=== PATIENT | male | born 1955 | race Caucasian/White ===

== ENCOUNTER → 2016-04-28 | Outpatient (REF) | payer OTHER ==
[~2016-04-28] MED LIST: ATOR1TAB19 PO; FISH100049 PO; PROTPAK PO
[2016-04-28 16:04] LABS: ALBUMIN 3.8 GM/DL (3.2-5.2); ALBUMIN/GLOBULIN RATIO 1.15 (1.00-1.93); ALKALINE PHOSPHATASE 69 U/L (45-117); ALT/SGPT 26 U/L (12-78); ANION GAP 9 MEQ/L (8-16); AST/SGOT 18 U/L (15-37); BILIRUBIN,TOTAL 0.4 MG/DL (0.2-1.0); BLOOD UREA NITROGEN 18 MG/DL (7-18); CALCIUM LEVEL 9.3 MG/DL (8.8-10.2); CARBON DIOXIDE LEVEL 27 MEQ/L (21-32); CHLORIDE LEVEL 104 MEQ/L (98-107); CHOLESTEROL LEVEL 191 MG/DL (<200); CREATININE FOR GFR 1.02 MG/DL (0.70-1.30); GLOMERULAR FILTRATION RATE > 60.0 (>49); GLUCOSE, FASTING 86 MG/DL (80-110); POTASSIUM SERUM 5.1 MEQ/L (3.5-5.1); SODIUM LEVEL 140 MEQ/L (136-145); TOTAL PROTEIN 7.1 GM/DL (6.4-8.2); TRIGLYCERIDES LEVEL 290 MG/DL (<150); URIC ACID 6.4 MG/DL (3.5-7.2)
[2016-04-28 16:06] LABS: MEAN CORPUSCULAR HEMOGLOBIN 32.8 pg (27.0-33.0); MEAN CORPUSCULAR HGB CONC 33.6 g/dl (32.0-36.5); MEAN CORPUSCULAR VOLUME 97.8 fl (80.0-96.0); RED CELL DISTRIBUTION WIDTH 12.3 % (11.5-14.5)
== END ==
LOC: M SFHCPLAZ 13:54
PROVIDERS: ATTEND Internal Medicine
DX: Z00.00 Encounter for general adult medical examination without abnormal findings (principal); I25.10 Atherosclerotic heart disease of native coronary artery without angina pectoris; M25.571 Pain in right ankle and joints of right foot; K21.9 Gastro-esophageal reflux disease without esophagitis; E78.5 Hyperlipidemia, unspecified

== ENCOUNTER → 2016-06-02 | Outpatient (REF) | payer OTHER ==
[2016-06-02 10:30] LABS: MEAN CORPUSCULAR HEMOGLOBIN 31.9 pg (27.0-33.0); MEAN CORPUSCULAR HGB CONC 33.9 g/dl (32.0-36.5); MEAN CORPUSCULAR VOLUME 94.1 fl (80.0-96.0); RED CELL DISTRIBUTION WIDTH 12.5 % (11.5-14.5)
[2016-06-02 10:46] LABS: ALBUMIN 3.8 GM/DL (3.2-5.2); ALBUMIN/GLOBULIN RATIO 1.12 (1.00-1.93); ALKALINE PHOSPHATASE 83 U/L (45-117); ALT/SGPT 29 U/L (12-78); ANION GAP 10 MEQ/L (8-16); AST/SGOT 22 U/L (15-37); BILIRUBIN,TOTAL 0.6 MG/DL (0.2-1.0); BLOOD UREA NITROGEN 15 MG/DL (7-18); CALCIUM LEVEL 9.2 MG/DL (8.8-10.2); CARBON DIOXIDE LEVEL 27 MEQ/L (21-32); CHLORIDE LEVEL 103 MEQ/L (98-107); CHOLESTEROL LEVEL 166 MG/DL (<200); CREATININE FOR GFR 0.97 MG/DL (0.70-1.30); GLOMERULAR FILTRATION RATE > 60.0 (>49); GLUCOSE, FASTING 104 MG/DL (80-110); POTASSIUM SERUM 4.6 MEQ/L (3.5-5.1); SODIUM LEVEL 140 MEQ/L (136-145); TOTAL PROTEIN 7.2 GM/DL (6.4-8.2); TRIGLYCERIDES LEVEL 388 MG/DL (<150)
== END ==
LOC: M LAB REF 10:14
PROVIDERS: ATTEND Internal Medicine Cardiovascular Disease
DX: I25.10 Atherosclerotic heart disease of native coronary artery without angina pectoris (principal)

== ENCOUNTER 2016-06-11 10:14 | Outpatient (RCR) | payer OTHER | END 2016-06-17 | LOC: M CR 10:14 | PROVIDERS: ATTEND Internal Medicine Cardiovascular Disease | DX: Z51.89 Encounter for other specified aftercare (principal); I25.10 Atherosclerotic heart disease of native coronary artery without angina pectoris; Z98.61 Coronary angioplasty status ==

== ENCOUNTER 2016-07-04 14:05 | Outpatient (RCR) | payer OTHER | END 2016-07-18 | LOC: M CR 14:05 | PROVIDERS: ATTEND Internal Medicine Cardiovascular Disease | DX: Z51.89 Encounter for other specified aftercare (principal); I25.10 Atherosclerotic heart disease of native coronary artery without angina pectoris; Z98.61 Coronary angioplasty status ==

== ENCOUNTER 2016-07-21 09:31 | Outpatient (RCR) | payer OTHER | END 2016-08-17 | LOC: M CR 09:31 | PROVIDERS: ATTEND Internal Medicine Cardiovascular Disease | DX: Z51.89 Encounter for other specified aftercare (principal); I25.10 Atherosclerotic heart disease of native coronary artery without angina pectoris; Z98.61 Coronary angioplasty status ==

== ENCOUNTER 2016-08-18 08:23 | Outpatient (RCR) | payer OTHER | END 2016-09-17 | LOC: M CR 08:23 | PROVIDERS: ATTEND Internal Medicine Cardiovascular Disease | DX: Z51.89 Encounter for other specified aftercare (principal); I25.10 Atherosclerotic heart disease of native coronary artery without angina pectoris; Z98.61 Coronary angioplasty status ==

== ENCOUNTER 2017-01-27 11:38 | Emergency (ER) | payer OTHER ==
[~2017-01-27] VITALS: Ht 172.7 cm; Wt 72.7 kg
[2017-01-27] MEDS ORDERED: ROSU5TAB (11:49)
[2017-01-27] MEDS ORDERED: LISI2.5T3 (11:49)
[2017-01-27] MEDS ORDERED: CARV6.25 (11:49)
[2017-01-27] MEDS ORDERED: COEN200C (11:49)
[2017-01-27] MEDS ORDERED: BRIL90TA (11:49)
[2017-01-27 12:42] LABS: BASO # 0.1 10^3/uL (0.0-0.2); BASO % 0.8 % (0.0-1.0); EOS # 0.2 10^3/uL (0.0-0.50); EOS % 2.8 % (0.0-3.0); IMMATURE GRANULOCYTE % 0.4 % (0-0); LYMPH # 1.6 10^3/uL (1.5-4.5); LYMPH % 20.6 % (24.0-44.0); MEAN CORPUSCULAR HEMOGLOBIN 32.9 pg (27.0-33.0); MEAN CORPUSCULAR HGB CONC 34.3 g/dl (32.0-36.5); MEAN CORPUSCULAR VOLUME 95.7 fl (80.0-96.0); MONO % 13.3 % (0.0-5.0); NEUTROPHILS # 4.7 10^3/uL (1.8-7.7); NEUTROPHILS % 62.1 % (36.0-66.0); PLATELET COUNT, AUTOMATED 246 10^3/uL (150-450); RED CELL DISTRIBUTION WIDTH 12.7 % (11.5-14.5); WHITE BLOOD COUNT 7.6 10^3/uL (4.0-10.0)
[2017-01-27] MEDS ORDERED: diphenhydrAMINE INJ 50MG/ML VIAL (J1200) IV ONE (12:45)
[2017-01-27] MEDS ORDERED: FAMOTIDINE INJ 20MG/2ML VIAL (S0028) IVP ONE (12:45)
[2017-01-27] MEDS ORDERED: methylPREDNISolone INJ 125 MG/2 ML VIAL (J2930) IV ONE (12:45)
[2017-01-27 12:49] LABS: ANION GAP 9 MEQ/L (8-16); BLOOD UREA NITROGEN 17 MG/DL (7-18); CALCIUM LEVEL 9.3 MG/DL (8.8-10.2); CARBON DIOXIDE LEVEL 24 MEQ/L (21-32); CHLORIDE LEVEL 101 MEQ/L (98-107); CREATININE FOR GFR 1.04 MG/DL (0.70-1.30); GLOMERULAR FILTRATION RATE > 60.0 (>49); GLUCOSE, FASTING 110 MG/DL (80-110); POTASSIUM SERUM 4.5 MEQ/L (3.5-5.1); SODIUM LEVEL 134 MEQ/L (136-145)
[2017-01-27 14:29] VITALS: BP 113/73
== END 2017-01-27 14:36 | disposition home or self-care (01) ==
LOC: M ED 11:38
DX: T78.3XXA Angioneurotic edema, initial encounter (principal); Z79.01 Long term (current) use of anticoagulants; I25.10 Atherosclerotic heart disease of native coronary artery without angina pectoris; I25.2 Old myocardial infarction; I10 Essential (primary) hypertension; E78.4 Other hyperlipidemia
CPT/HCPCS: 80048; 85025; 93041; 94760; 96374; 96375; 99285; J1200; J2930

== ENCOUNTER → 2017-04-07 | Outpatient (REF) | payer OTHER ==
[~2017-04-07] MED LIST changes: +BRIL90TA; +CARV6.25; +COEN200C; +LISI2.5T3; +ROSU5TAB
[2017-04-07 12:39] LABS: ALBUMIN/GLOBULIN RATIO 1.14 (1.00-1.93); ALKALINE PHOSPHATASE 68 U/L (45-117); ALT/SGPT 42 U/L (12-78); ANION GAP 10 MEQ/L (8-16); AST/SGOT 36 U/L (7-37); BILIRUBIN,TOTAL 0.8 MG/DL (0.2-1.0); BLOOD UREA NITROGEN 15 MG/DL (7-18); CALCIUM LEVEL 9.3 MG/DL (8.8-10.2); CARBON DIOXIDE LEVEL 28 MEQ/L (21-32); CHLORIDE LEVEL 102 MEQ/L (98-107); CHOLESTEROL LEVEL 206 MG/DL (<200); CREATININE FOR GFR 0.87 MG/DL (0.70-1.30); GLOMERULAR FILTRATION RATE > 60.0 (>49); GLUCOSE, FASTING 104 MG/DL (80-110); MAGNESIUM LEVEL 2.3 MG/DL (1.8-2.4); POTASSIUM SERUM 4.5 MEQ/L (3.5-5.1); SODIUM LEVEL 140 MEQ/L (136-145); TOTAL PROTEIN 7.5 GM/DL (6.4-8.2); TRIGLYCERIDES LEVEL 247 MG/DL (<150); URIC ACID 7.7 MG/DL (3.5-7.2)
== END ==
LOC: M SFHCPLAZ 11:10
PROVIDERS: ATTEND Internal Medicine
DX: E78.5 Hyperlipidemia, unspecified (principal); I25.10 Atherosclerotic heart disease of native coronary artery without angina pectoris; M25.571 Pain in right ankle and joints of right foot

== ENCOUNTER → 2017-09-24 | Outpatient (REF) | payer OTHER ==
[2017-09-24 12:35] LABS: HEMATOCRIT 40.4 % (42.0-52.0); HEMOGLOBIN 13.5 g/dl (13.5-17.5); MEAN CORPUSCULAR HEMOGLOBIN 33.3 pg (27.0-33.0); MEAN CORPUSCULAR HGB CONC 33.4 g/dl (32.0-36.5); MEAN CORPUSCULAR VOLUME 99.8 fl (80.0-96.0); PLATELET COUNT, AUTOMATED 200 10^3/uL (150-450); RED BLOOD COUNT 4.05 10^6/uL (4.30-6.10); RED CELL DISTRIBUTION WIDTH 12.7 % (11.5-14.5); WHITE BLOOD COUNT 5.1 10^3/uL (4.0-10.0)
[2017-09-24 13:11] LABS: ALBUMIN 3.7 GM/DL (3.2-5.2); ALBUMIN/GLOBULIN RATIO 1.12 (1.00-1.93); ALKALINE PHOSPHATASE 64 U/L (45-117); ALT/SGPT 51 U/L (12-78); ANION GAP 7 MEQ/L (8-16); AST/SGOT 35 U/L (7-37); BILIRUBIN,TOTAL 0.5 MG/DL (0.2-1.0); BLOOD UREA NITROGEN 13 MG/DL (7-18); CALCIUM LEVEL 9.1 MG/DL (8.8-10.2); CARBON DIOXIDE LEVEL 28 MEQ/L (21-32); CHLORIDE LEVEL 106 MEQ/L (98-107); CHOLESTEROL LEVEL 193 MG/DL (<200); CHOLESTEROL RISK RATIO 3.271 (<5); CREATININE FOR GFR 0.92 MG/DL (0.70-1.30); GLOMERULAR FILTRATION RATE > 60.0 (>49); GLUCOSE, FASTING 92 MG/DL (70-100); HDL CHOLESTEROL 59 MG/DL (>40); LDL CHOLESTEROL 87.4 MG/DL (<100); MAGNESIUM LEVEL 1.8 MG/DL (1.8-2.4); NON-HDL-C 134 MG/DL; SODIUM LEVEL 141 MEQ/L (136-145); TRIGLYCERIDES LEVEL 233 MG/DL (<150); URIC ACID 8.8 MG/DL (3.5-7.2)
== END ==
LOC: M SFHCPLAZ 08:05
DX: K21.9 Gastro-esophageal reflux disease without esophagitis (principal); E79.0 Hyperuricemia without signs of inflammatory arthritis and tophaceous disease; I25.10 Atherosclerotic heart disease of native coronary artery without angina pectoris; E78.5 Hyperlipidemia, unspecified; R00.2 Palpitations

== ENCOUNTER → 2018-02-23 | Outpatient (REF) | payer OTHER ==
[2018-02-23 14:27] LABS: NT-PRO BNP 1740 PG/ML (<125)
== END ==
LOC: M LABDRAWP 10:08
DX: I50.42 Chronic combined systolic (congestive) and diastolic (congestive) heart failure (principal)
CPT/HCPCS: 36415

== ENCOUNTER → 2018-03-26 | Outpatient (REF) | payer OTHER ==
[2018-03-26 12:13] LABS: ALKALINE PHOSPHATASE 68 U/L (45-117); ALT/SGPT 29 U/L (12-78); ANION GAP 7 MEQ/L (8-16); AST/SGOT 32 U/L (7-37); BILIRUBIN,TOTAL 0.5 MG/DL (0.2-1.0); BLOOD UREA NITROGEN 18 MG/DL (7-18); CALCIUM LEVEL 8.8 MG/DL (8.8-10.2); CARBON DIOXIDE LEVEL 27 MEQ/L (21-32); CHLORIDE LEVEL 106 MEQ/L (98-107); CREATININE FOR GFR 1.02 MG/DL (0.70-1.30); GLOMERULAR FILTRATION RATE > 60.0 (>49); GLUCOSE, FASTING 90 MG/DL (70-100); SODIUM LEVEL 140 MEQ/L (136-145)
[2018-03-26 12:14] LABS: ALBUMIN 3.7 GM/DL (3.2-5.2); ALBUMIN/GLOBULIN RATIO 1.09 (1.00-1.93); CHOLESTEROL LEVEL 201 MG/DL (<200); CHOLESTEROL RISK RATIO 3.406 (<5); HDL CHOLESTEROL 59 MG/DL (>40); HEMATOCRIT 42.3 % (42.0-52.0); HEMOGLOBIN 14.3 g/dl (13.5-17.5); LDL CHOLESTEROL 96 MG/DL (<100); MAGNESIUM LEVEL 1.9 MG/DL (1.8-2.4); MEAN CORPUSCULAR HEMOGLOBIN 33.8 pg (27.0-33.0); MEAN CORPUSCULAR HGB CONC 33.8 g/dl (32.0-36.5); NON-HDL-C 142 MG/DL; PLATELET COUNT, AUTOMATED 199 10^3/uL (150-450); RED BLOOD COUNT 4.23 10^6/uL (4.30-6.10); RED CELL DISTRIBUTION WIDTH 12.9 % (11.5-14.5); TOTAL PROTEIN 7.1 GM/DL (6.4-8.2); TRIGLYCERIDES LEVEL 230 MG/DL (<150); URIC ACID 8.1 MG/DL (3.5-7.2); WHITE BLOOD COUNT 4.3 10^3/uL (4.0-10.0)
== END ==
LOC: M SFHCPLAZ 09:43
DX: K21.9 Gastro-esophageal reflux disease without esophagitis (principal); E78.5 Hyperlipidemia, unspecified; I25.10 Atherosclerotic heart disease of native coronary artery without angina pectoris; R00.2 Palpitations; E79.0 Hyperuricemia without signs of inflammatory arthritis and tophaceous disease

== ENCOUNTER 2018-04-16 13:43 | Emergency (ER) | payer OTHER ==
[~2018-04-16] VITALS: Ht 172.7 cm; Wt 73.2 kg
[~2018-04-16 13:43] MED LIST changes: -LISI2.5T3; +LISI2.5T5; -ROSU5TAB; +ROSU5TAB4
[2018-04-16 13:44] VITALS: BP 120/70
[2018-04-16] MEDS ORDERED: CLAR10CA3 PO (13:53)
[2018-04-16] MEDS ORDERED: METO1TAB32 PO (13:53)
[2018-04-16 14:14] LABS: BASO # 0.1 10^3/uL (0.0-0.2); BASO % 1.1 % (0.0-1.0); EOS # 0.2 10^3/uL (0.0-0.50); EOS % 4.4 % (0.0-3.0); HEMATOCRIT 43.7 % (42.0-52.0); HEMOGLOBIN 14.9 g/dl (13.5-17.5); LYMPH # 1.5 10^3/uL (1.5-4.5); MEAN CORPUSCULAR HEMOGLOBIN 33.9 pg (27.0-33.0); MEAN CORPUSCULAR HGB CONC 34.1 g/dl (32.0-36.5); MEAN CORPUSCULAR VOLUME 99.3 fl (80.0-96.0); MONO # 0.8 10^3/uL (0.0-0.8); MONO % 17.2 % (0.0-5.0); NEUTROPHILS % 43.9 % (36.0-66.0); PLATELET COUNT, AUTOMATED 209 10^3/uL (150-450); WHITE BLOOD COUNT 4.6 10^3/uL (4.0-10.0)
[2018-04-16 14:26] LABS: INR 0.99; PROTHROMBIN TIME 13.2 SECONDS (12.1-14.4)
[2018-04-16 14:27] LABS: PARTIAL THROMBOPLASTIN TIME 25.3 SECONDS (25.4-37.6)
--- NOTE | 2018-04-16 14:29 | REP ---
Clinical: Acute chest pain . Comparison: 04/10/2016 . Findings: The mediastinum and cardiac silhouette are stable and within normal limits for portable technique. Incidental cardiac stent noted. Subtle bibasilar air space disease (left greater than right) suggest acute atelectasis/pneumonia and correlation is required. There is a vague blunting to the left costophrenic angle which may represent an associated small pleural reaction. No pneumothorax. No obvious adenopathy. Impression: Subtle bibasilar atelectasis/infiltrate (left greater than right) with small left pleural reaction. Electronically Signed by Ricky Louise MD 04/16/2018 02:21 P
[2018-04-16 14:52] LABS: ALBUMIN 3.8 GM/DL (3.2-5.2); ALT/SGPT 43 U/L (12-78); BILIRUBIN,DIRECT 0.2 MG/DL (0.0-0.2); BILIRUBIN,TOTAL 0.4 MG/DL (0.2-1.0); BLOOD UREA NITROGEN 17 MG/DL (7-18); CALCIUM LEVEL 8.8 MG/DL (8.8-10.2); CARBON DIOXIDE LEVEL 24 MEQ/L (21-32); CHLORIDE LEVEL 105 MEQ/L (98-107); CPK CREATINE PHOSPHOKINASE 82 U/L (39-308); CREATININE FOR GFR 1.04 MG/DL (0.70-1.30); FREE T4 0.85 NG/DL (0.76-1.46); GLOMERULAR FILTRATION RATE > 60.0 (>49); GLUCOSE, FASTING 113 MG/DL (70-100); LIPASE 221 U/L (73-393); MB/CK RELATIVE INDEX 2.68 (< OR =4); POTASSIUM SERUM 4.6 MEQ/L (3.5-5.1); SODIUM LEVEL 140 MEQ/L (136-145); TOTAL PROTEIN 7.4 GM/DL (6.4-8.2); TROPONIN I < 0.02 NG/ML (< 0.10)
[2018-04-16] MEDS ORDERED: ISOVUE-370 76% 100ML VIAL (Q9967) As Ordered ONE (15:08)
--- NOTE | 2018-04-16 16:09 | REP ---
CT pulmonary angiogram: With IV contrast. History: Hemoptysis. Chest pain. Comparison studies: Comparison is made with today's portable chest x-ray. Contrast dose: 75 cc's of Isovue [address] technique: Helical scanning is acquired and overlapping 1.5 mm and contiguous 3 mm axial images are reformatted. In addition, maximum intensity projection and multiplanar re-formation images are generated in sagittal and coronal imaging projections. CT pulmonary angiographic findings: There is good opacification of the pulmonary arterial tree. No vessel cutoff or filling defect is seen to suggest pulmonary embolism. Maximal intensity projection images show no evidence of pulmonary embolism. There is no evidence of aortic dissection or aneurysm. No pleural or pericardial effusion is seen. There are patchy areas of alveolar opacity or consolidation in the lower lobes bilaterally and in a smaller area of the right middle lobe. In addition, there is a nodular opacity in the right upper lobe, which measures 13 mm in greatest diameter. This merits follow-up. No other significant pulmonary nodule is seen. There is mild diffuse fatty infiltration in the liver. No adrenal lesion is observed. The visualized upper abdominal structures are otherwise unremarkable. The heart is enlarged. Impression: No CT evidence of pulmonary embolus. Cardiomegaly. Patchy infiltrates in the right and left lower lobe and in the right middle lobe. In addition, there is a 13 mm somewhat spiculated appearing nodular opacity in the right upper lobe which merits follow-up chest CT. Electronically Signed by Presley Sanchez MD 04/16/2018 04:18 P
[2018-04-16] MEDS ORDERED: cefTRIAXone SOD 1 GM in D5W MINI-BAG PLUS 50 ML IV ONE (16:15)
[2018-04-16] MEDS ORDERED: LEVA750T7 PO (16:16)
--- NOTE | 2018-04-16 18:42 | ECGEPIP ---
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
== END 2018-04-16 16:50 | disposition home or self-care (01) ==
LOC: M ED 13:43
DX: J18.9 Pneumonia, unspecified organism (principal); R91.1 Solitary pulmonary nodule; I25.10 Atherosclerotic heart disease of native coronary artery without angina pectoris; Z95.5 Presence of coronary angioplasty implant and graft; Z79.899 Other long term (current) drug therapy; Z88.1 Allergy status to other antibiotic agents
CPT/HCPCS: 71045; 71275; 80048; 80076; 82550; 82553; 83690; 84439; 84443; 84484; 85025; 85610; 85730; 93005; 93041; 94760; 96374; 99284; J0696; Q9967

== ENCOUNTER → 2018-06-09 | Outpatient (REF) | payer OTHER ==
[~2018-06-09] MED LIST changes: +CLAR10CA3 PO; +LEVA750T7 PO; +METO1TAB32 PO
== END ==
LOC: M LAB REF 13:32
PROVIDERS: ATTEND Nurse Practitioner Adult Health
DX: R04.2 Hemoptysis (principal)

== ENCOUNTER → 2018-06-14 | Outpatient (CLI) | payer OTHER ==
[~2018-06-14] MED LIST changes: +ASPI1TAB PO; -CARV6.25; +CARV6.25 PO; -COEN200C; +COEN200C PO; +FLUTISP; +ISOVUE-370 76% 100ML VIAL (Q9967) As Ordered ONE; -ROSU5TAB4; +ROSU5TAB4 PO; +VASC1CAP2 PO
--- NOTE | 2018-06-14 13:50 | REP ---
Clinical: Follow up abnormal lung field findings. Technique: Axial contrast enhanced images from the thoracic inlet to the upper abdomen using 100 ml Isovue 370 intravenous contrast material with coronal and sagittal re-formations. Findings: Patchy bilateral infiltrates primarily involving the right lower lobe, right middle lobe and to a lesser extent the left lower lobe are again identified and suggest a chronic/acute multifocal pneumonia. Previously identified 13 mm suspicious area of opacity in the right upper lobe has resolved and likely represented a small area of infiltrate/atelectasis. Current examination now demonstrates a new 14 mm opacity along the anterior subpleural left upper lobe (image 42) which also likely represents a transient area of infiltrate. No pleural effusion. No pneumothorax. Tracheobronchial tree is patent. No significant adenopathy appreciated. Underlying mild emphysematous changes are suggested. Mediastinum demonstrates normal thoracic aorta, pulmonary vasculature. Coronary artery stenting noted along with mild stable cardiomegaly. No pericardial effusion. Surrounding musculoskeletal structures without focal osseous abnormality. Limited upper abdomen demonstrates normal bilateral adrenal glands along with small hiatal hernia and hepatosteatosis. Impression: 1. Multifocal infiltrates similar to prior examination primarily involving the right lower lobe and lingula suggest a subacute multifocal pneumonia process and correlation is recommended. 2. Previously identified suspicious 13 mm opacity in the right upper lobe has resolved. A somewhat similar new area of opacity in the subpleural anterior left upper lobe is now identified and likely represents a similar trans an area of infiltrate. The above findings warrant followup to resolution. 3. Hepatosteatosis. 4. Small hiatal hernia. Electronically Signed by Ricky Louise MD 06/14/2018 01:41 P
== END ==
LOC: M RAD 12:47
PROVIDERS: ATTEND Internal Medicine Pulmonary Disease
DX: R91.8 Other nonspecific abnormal finding of lung field (principal); I51.7 Cardiomegaly; Z95.5 Presence of coronary angioplasty implant and graft; K44.9 Diaphragmatic hernia without obstruction or gangrene; K75.81 Nonalcoholic steatohepatitis (NASH)
CPT/HCPCS: 71260; Q9967

== ENCOUNTER 2018-06-28 07:46 | Day surgery (SDC) | payer OTHER ==
[~2018-06-28] VITALS: Ht 172.7 cm; Wt 74.8 kg
[~2018-06-28 07:46] MED LIST changes: -ISOVUE-370 76% 100ML VIAL (Q9967) As Ordered ONE
[2018-06-28] MEDS ORDERED: MIDAZOLAM INJ 2 MG/2 ML VIAL (J2250) As Ordered ONE (08:43)
[2018-06-28] MEDS ORDERED: LIDOCAINE 2% INJ 100 MG/5 ML SDV (FOR ANES.) As Ordered ONE (08:43)
[2018-06-28] MEDS ORDERED: PROPOFOL 200 MG/20 ML VIAL As Ordered ONE (08:43)
[2018-06-28] MEDS ORDERED: ROCURONIUM BROMIDE 50 MG/5 ML VIAL As Ordered ONE (08:43)
[2018-06-28] MEDS ORDERED: fentaNYL 100 MCG/2 ML INJECTION (J3010) As Ordered ONE ×2 (08:44→09:51)
[2018-06-28] MEDS ORDERED: dexameTHASONE 4 MG/ML 1ML VIAL (J1100) As Ordered ONE (08:47)
[2018-06-28] MEDS ORDERED: ONDANSETRON 4MG/2ML VIAL (J2405) As Ordered ONE (08:47)
[2018-06-28] MEDS ORDERED: LIDOCAINE 1% MDV 20ML VIAL As Ordered ONE (08:55)
[2018-06-28] MEDS ORDERED: LIDOCAINE 4% TOPICAL SOLN 50 ML BTL As Ordered ONE (08:55)
[2018-06-28] MEDS ORDERED: THROMBIN SOLN 5,000 UNITS VIAL As Ordered ONE (08:55)
[2018-06-28] MEDS ORDERED: EPINEPHrine 1MG/10ML SYRINGE 1.5IN As Ordered ONE (08:55)
[2018-06-28] MEDS ORDERED: LIDOCAINE VISCOUS 2% SOLN 15ML UDC As Ordered ONE (08:56)
[2018-06-28] MEDS ORDERED: CETACAINE SPRAY 5GM As Ordered ONE (08:57)
[2018-06-28] MEDS ORDERED: SUGAMMADEX SODIUM 500 MG/5 ML VIAL (BRIDION) As Ordered ONE (10:06)
[2018-06-28] MEDS ORDERED: ONDANSETRON 4MG/2ML VIAL (J2405) IV PRN (10:45)
[2018-06-28] MEDS ORDERED: PERCOCET 5MG/325MG TAB PO PRN (10:45)
[2018-06-28] MEDS ORDERED: HYDROMORPHONE HCL 0.5 MG/ 0.5 ML SYRINGE (J1170 PER 1) IV PRN (10:45)
[2018-06-28] MEDS ORDERED: LR 1,000 ML IV SCH (10:45)
[2018-06-28] MEDS ORDERED: fentaNYL 100 MCG/2 ML INJECTION (J3010) IV PRN (10:45)
--- NOTE | 2018-06-28 11:02 | REP ---
Chest one-view HISTORY: Postop Comparison: 05/05/2018 Patchy density is present in the lower lobes consistent with bibasilar atelectasis or infiltrates slightly increased on the right and unchanged on the left. The heart is normal in size. The pulmonary vasculature is normal in appearance. Impression: Bibasilar atelectasis or infiltrate slightly increased on the right and unchanged on the left. Electronically Signed by Bala Montiel MD 06/28/2018 10:54 A
[2018-06-28 11:30] VITALS: BP 96/62
--- NOTE | 2018-06-29 10:03 | RO ---
DATE OF PROCEDURE: 06/28/2018 PREOPERATIVE DIAGNOSIS: Hemoptysis and right basilar lung infiltrate. POSTOPERATIVE DIAGNOSIS: Hemoptysis and right basilar lung infiltrate, with no gross endobronchial disease. PROCEDURE PERFORMED: Fiberoptic bronchoscopy with transbronchoscopic washing, cytology and microbiology brushing, multiple biopsies in the right lower lobe and endobronchial ultrasound. SURGEON: Angel Mclean DO CLINICAL ACCOUNT SPECIALIST: ANESTHESIA: FINDINGS: Included minor hypertrophy with mucus pits, some prominent varicosities and no gross endobronchial obstructive disease. DESCRIPTION OF PROCEDURE: The patient was seen and the procedure explained to the patient as well as possible complications pertaining thereto. A written and informed consent were obtained and placed in the chart. The patient was brought to the operative suite, placed under general anesthetic. When the anesthetic had, had sufficient time to take effect the bronchoscope was placed in through the endotracheal tube and into the trachea. The sebastian was sharp. The airways of the left lung were examined in a subsegmental fashion for any evidence of tumor, ulcerative necrosis, vessel engorgement or mucosal irregularity. There was some prominence of the mucus pits in the lingula and some prominence of the superficial vessels in the left lower lobe. No gross endobronchial disease was appreciated. There were minimal secretions. The bronchoscope was then retracted to the level of the sebastian. A small ribbon of blood was appreciated on the airway leading to the right lower lobe posterior segment. Photographs were taken. The bronchoscope was then placed into the right mainstem bronchus. The right upper lobe was examined in a subsegmental fashion with no evidence of bleeding, ulcer necrosis, vessel engorgement or mucosal irregularity. The bronchus intermedius was found in similar condition and there was no obvious endobronchial disease in the right middle lobe. The bronchoscope was then placed into the right lower lobe and subsegmental inspection was performed with no evidence of mucosal lesion. The ribbon of blood was leading to the posterior basilar segment of the right lower lobe, which corresponds to the infiltrate on CT. This segment was entered, and using fluoroscopic guidance, transbronchoscopic washings were performed following by protected microscopic brushing, followed by cytology brushes. The first cytology brush was handed off to the in-room cytopathologist and adequate sampling was confirmed. A second cytology brushing was performed using fluoroscopic guidance to secure adequate sampling. Thereafter, the bronchoscope was retracted to the right mainstem bronchus and Percepta brushes were performed anteriorly and posteriorly of the right mainstem; following this, the airways were lavaged with saline and the bronchoscope placed once again into the posterior basilar segment of the right lower lobe. Multiple biopsies were performed using fluoroscopic guidance. When sufficient tissue samples had been obtained, the airways were again lavaged with saline. Thereafter, an endobronchial ultrasound scope was placed in to the right mainstem bronchus. lymph nodes at the right perihilar station and subcarinal station were visualized and measured. Photographs were taken. There was no enlargement or abnormality appreciated within the lymph nodes visualized. The ultrasound scope was removed and the standard bronchoscope reintroduced. The airways were once again inspected and lavaged with saline. There was no evidence of any bleeding from any airway at the completion of the procedure. The bronchoscope was retracted out through the endotracheal tube and anesthetic was reversed. The procedure was reviewed with the patient briefly in the recovery room and a postprocedure chest x-ray was performed. The patient tolerated procedure well, suffered no apparent complication and is in stable condition in the recovery room.
== END 2018-06-28 12:00 | disposition home or self-care (01) ==
LOC: M SDC 07:46
PROVIDERS: ATTEND Internal Medicine Pulmonary Disease
DX: R04.2 Hemoptysis (principal); R91.8 Other nonspecific abnormal finding of lung field; I25.10 Atherosclerotic heart disease of native coronary artery without angina pectoris; I25.2 Old myocardial infarction; Z98.61 Coronary angioplasty status; E78.5 Hyperlipidemia, unspecified; K21.9 Gastro-esophageal reflux disease without esophagitis; Z79.899 Other long term (current) drug therapy; Z79.82 Long term (current) use of aspirin; Z88.8 Allergy status to other drugs, medicaments and biological substances; Z88.1 Allergy status to other antibiotic agents
CPT/HCPCS: 31623; 31629; 31652; 71045; 76000; 87070; 87071; 87102; 87116; 87205; 87206; 88104; 88305; J1100; J2250; J2405; J3010

== ENCOUNTER → 2018-07-26 | Outpatient (REF) | payer OTHER, MEDICARE ==
[~2018-07-26] MED LIST changes: -ASPI1TAB PO; +ASPI81TA26 PO; +LISI-1046; -LISI2.5T5
[2018-07-30 10:25] LABS: ASPERGILLUS FUMIGATUS AB Negative (Negative); AUREOBASIDIUM PULLULANS Negative (Negative); MICROPOLYSPORA FAENI AB Negative (Negative); PIGEON SERUM AB Negative (Negative); THERMOACTINOMYCES SACCHARI Negative (Negative); THERMOACTINOMYCES VULGARIS Negative (Negative)
== END ==
LOC: M LABDRAWP 11:32
PROVIDERS: ATTEND Internal Medicine Pulmonary Disease
DX: R04.2 Hemoptysis (principal)

== ENCOUNTER → 2018-07-26 | Outpatient (REF) | payer OTHER, MEDICARE ==
[2018-07-26 12:07] LABS: ALBUMIN 3.5 GM/DL (3.2-5.2); BLOOD UREA NITROGEN 18 MG/DL (7-18); CALCIUM LEVEL 9.5 MG/DL (8.8-10.2); CARBON DIOXIDE LEVEL 28 MEQ/L (21-32); CHLORIDE LEVEL 105 MEQ/L (98-107); CREATININE FOR GFR 0.97 MG/DL (0.70-1.30); GLOMERULAR FILTRATION RATE > 60.0 (>49); GLUCOSE, FASTING 96 MG/DL (70-100); NT-PRO BNP 1944 PG/ML (<125); PHOSPHORUS LEVEL 4.1 MG/DL (2.5-4.9); POTASSIUM SERUM 5.5 MEQ/L (3.5-5.1); SODIUM LEVEL 138 MEQ/L (136-145)
== END ==
LOC: M LABDRAWP 11:33
PROVIDERS: ATTEND Internal Medicine Cardiovascular Disease
DX: I50.42 Chronic combined systolic (congestive) and diastolic (congestive) heart failure (principal)

== ENCOUNTER → 2018-09-21 | Outpatient (REF) | payer OTHER, MEDICARE ==
[2018-09-21 10:56] LABS: BASO # 0.1 10^3/uL (0.0-0.2); BASO % 1.4 % (0.0-1.0); EOS # 0.2 10^3/uL (0.0-0.50); EOS % 3.7 % (0.0-3.0); HEMATOCRIT 39.4 % (42.0-52.0); HEMOGLOBIN 13.3 g/dl (13.5-17.5); LYMPH # 1.8 10^3/uL (1.5-4.5); LYMPH % 41.9 % (24.0-44.0); MEAN CORPUSCULAR HEMOGLOBIN 32.4 pg (27.0-33.0); MEAN CORPUSCULAR HGB CONC 33.8 g/dl (32.0-36.5); MEAN CORPUSCULAR VOLUME 96.1 fl (80.0-96.0); MONO # 0.8 10^3/uL (0.0-0.8); MONO % 18.3 % (0.0-5.0); NEUTROPHILS # 1.5 10^3/uL (1.8-7.7); NEUTROPHILS % 34.5 % (36.0-66.0); PLATELET COUNT, AUTOMATED 192 10^3/uL (150-450); WHITE BLOOD COUNT 4.4 10^3/uL (4.0-10.0)
[2018-09-21 11:29] LABS: ALBUMIN 3.8 GM/DL (3.2-5.2); BLOOD UREA NITROGEN 18 MG/DL (7-18); CALCIUM LEVEL 9.5 MG/DL (8.8-10.2); CARBON DIOXIDE LEVEL 27 MEQ/L (21-32); CHLORIDE LEVEL 103 MEQ/L (98-107); CREATININE FOR GFR 1.08 MG/DL (0.70-1.30); GLOMERULAR FILTRATION RATE > 60.0 (>49); GLUCOSE, FASTING 87 MG/DL (70-100); NT-PRO BNP 1686 PG/ML (<125); PHOSPHORUS LEVEL 4.5 MG/DL (2.5-4.9); POTASSIUM SERUM 5.1 MEQ/L (3.5-5.1); SODIUM LEVEL 137 MEQ/L (136-145)
== END ==
LOC: M LABDRAWP 08:06
PROVIDERS: ATTEND Internal Medicine Cardiovascular Disease
DX: I50.42 Chronic combined systolic (congestive) and diastolic (congestive) heart failure (principal)

== ENCOUNTER → 2018-12-02 | Outpatient (REF) | payer OTHER ==
[~2018-12-02] MED LIST changes: -COEN200C PO; +RA C200C2 PO; -ROSU5TAB4 PO; +ROSU5TAB5 PO
[2018-12-02 12:57] LABS: ALBUMIN 3.7 GM/DL (3.2-5.2); ALT/SGPT 22 U/L (12-78); BILIRUBIN,TOTAL 0.4 MG/DL (0.2-1.0); BLOOD UREA NITROGEN 19 MG/DL (7-18); CALCIUM LEVEL 9.2 MG/DL (8.8-10.2); CARBON DIOXIDE LEVEL 24 MEQ/L (21-32); CHLORIDE LEVEL 105 MEQ/L (98-107); CHOLESTEROL LEVEL 208 MG/DL (<200); CHOLESTEROL RISK RATIO 3.781 (<5); CREATININE FOR GFR 0.97 MG/DL (0.70-1.30); GLOMERULAR FILTRATION RATE > 60.0 (>49); GLUCOSE, FASTING 91 MG/DL (70-100); HDL CHOLESTEROL 55 MG/DL (>40); LDL CHOLESTEROL 104 MG/DL (<100); MAGNESIUM LEVEL 2.9 MG/DL (1.8-2.4); NON-HDL-C 153 MG/DL; POTASSIUM SERUM 4.9 MEQ/L (3.5-5.1); SODIUM LEVEL 140 MEQ/L (136-145); TOTAL PROTEIN 7.2 GM/DL (6.4-8.2); TRIGLYCERIDES LEVEL 247 MG/DL (<150); URIC ACID 6.9 MG/DL (3.5-7.2)
== END ==
LOC: M SFHCPLAZ 08:44
PROVIDERS: ATTEND Internal Medicine
DX: E78.5 Hyperlipidemia, unspecified (principal); I25.10 Atherosclerotic heart disease of native coronary artery without angina pectoris; R00.2 Palpitations; Z12.5 Encounter for screening for malignant neoplasm of prostate; E79.0 Hyperuricemia without signs of inflammatory arthritis and tophaceous disease

== ENCOUNTER → 2019-04-04 | Outpatient (CLI) | payer OTHER ==
[~2019-04-04] MED LIST changes: +COEN200C PO; -RA C200C2 PO
[2019-04-04 17:16] LABS: ALBUMIN 3.9 GM/DL (3.2-5.2); ALT/SGPT 26 U/L (12-78); BILIRUBIN,TOTAL 0.4 MG/DL (0.2-1.0); BLOOD UREA NITROGEN 14 MG/DL (7-18); CARBON DIOXIDE LEVEL 29 MEQ/L (21-32); CHLORIDE LEVEL 103 MEQ/L (98-107); CREATININE FOR GFR 1.16 MG/DL (0.70-1.30); GLOMERULAR FILTRATION RATE > 60.0 (>49); GLUCOSE, FASTING 121 MG/DL (70-100); NT-PRO BNP 1170 PG/ML (<125); POTASSIUM SERUM 4.9 MEQ/L (3.5-5.1); SODIUM LEVEL 140 MEQ/L (136-145); TOTAL PROTEIN 7.6 GM/DL (6.4-8.2)
[2019-04-04 17:17] LABS: BASO # 0.1 10^3/uL (0.0-0.2); BASO % 1.2 % (0.0-1.0); EOS # 0.1 10^3/uL (0.0-0.5); EOS % 1.2 % (0.0-3.0); HEMATOCRIT 42.5 % (42.0-52.0); HEMOGLOBIN 13.8 g/dl (13.5-17.5); LYMPH # 0.9 10^3/uL (1.5-5.0); LYMPH % 18.8 % (24.0-44.0); MEAN CORPUSCULAR HEMOGLOBIN 33.4 pg (27.0-33.0); MEAN CORPUSCULAR HGB CONC 32.5 g/dl (32.0-36.5); MEAN CORPUSCULAR VOLUME 102.9 fl (80.0-96.0); MONO # 0.7 10^3/uL (0.0-0.8); MONO % 14.1 % (0.0-5.0); NEUTROPHILS # 3.2 10^3/uL (1.5-8.5); NEUTROPHILS % 64.1 % (36.0-66.0); PLATELET COUNT, AUTOMATED 205 10^3/uL (150-450); RED BLOOD COUNT 4.13 10^6/uL (4.30-6.10)
== END ==
LOC: M PLALAB 13:57
PROVIDERS: ATTEND Internal Medicine Cardiovascular Disease
DX: I50.42 Chronic combined systolic (congestive) and diastolic (congestive) heart failure (principal); I49.3 Ventricular premature depolarization; I25.10 Atherosclerotic heart disease of native coronary artery without angina pectoris; I34.0 Nonrheumatic mitral (valve) insufficiency

== ENCOUNTER → 2019-11-30 | Outpatient (REF) | payer BC, OTHER ==
[~2019-11-30] MED LIST changes: -COEN200C PO; -LISI-1046; +LISI2.5T2; +RA C200C2 PO
[2019-12-31 11:53] LABS: BASO # 0.1 10^3/uL (0.0-0.2); BASO % 1.2 % (0.0-1.0); EOS # 0.1 10^3/uL (0.0-0.5); EOS % 2.2 % (0.0-3.0); HEMATOCRIT 40.8 % (42.0-52.0); HEMOGLOBIN 13.5 g/dl (13.5-17.5); LYMPH % 33.1 % (24.0-44.0); MEAN CORPUSCULAR HEMOGLOBIN 34.2 pg (27.0-33.0); MEAN CORPUSCULAR HGB CONC 33.1 g/dl (32.0-36.5); MEAN CORPUSCULAR VOLUME 103.3 fl (80.0-96.0); MONO # 1.1 10^3/uL (0.0-0.8); MONO % 17.9 % (0.0-5.0); NEUTROPHILS # 2.7 10^3/uL (1.5-8.5); NEUTROPHILS % 45.1 % (36.0-66.0); PLATELET COUNT, AUTOMATED 181 10^3/uL (150-450); RED BLOOD COUNT 3.95 10^6/uL (4.30-6.10)
[2020-01-14 11:05] LABS: ALBUMIN 3.9 GM/DL (3.2-5.2); ALT/SGPT 37 U/L (12-78); BILIRUBIN,TOTAL 0.5 MG/DL (0.2-1.0); BLOOD UREA NITROGEN 17 MG/DL (7-18); CALCIUM LEVEL 9.5 MG/DL (8.8-10.2); CARBON DIOXIDE LEVEL 28 MEQ/L (21-32); CHLORIDE LEVEL 103 MEQ/L (98-107); CHOLESTEROL LEVEL 177 MG/DL (<200); CHOLESTEROL RISK RATIO 2.058 (<5); CREATININE FOR GFR 1.24 MG/DL (0.70-1.30); GLOMERULAR FILTRATION RATE > 60.0 (>49); GLUCOSE, FASTING 93 MG/DL (70-100); HDL CHOLESTEROL 86 MG/DL (>40); LDL CHOLESTEROL 64 MG/DL (<100); NON-HDL-C 91 MG/DL; POTASSIUM SERUM 5.3 MEQ/L (3.5-5.1); PROSTATIC SPECIFIC AG MONITOR 0.55 NG/ML (< 4.00); SODIUM LEVEL 138 MEQ/L (136-145); TOTAL PROTEIN 7.7 GM/DL (6.4-8.2); TRIGLYCERIDES LEVEL 137 MG/DL (<150); URIC ACID 7.1 MG/DL (3.5-7.2)
== END ==
LOC: M SFHCPLAZ 08:36
PROVIDERS: ATTEND Internal Medicine
DX: I25.10 Atherosclerotic heart disease of native coronary artery without angina pectoris (principal); I25.5 Ischemic cardiomyopathy; E78.5 Hyperlipidemia, unspecified; K21.9 Gastro-esophageal reflux disease without esophagitis; E79.0 Hyperuricemia without signs of inflammatory arthritis and tophaceous disease; Z12.5 Encounter for screening for malignant neoplasm of prostate

== ENCOUNTER → 2020-01-04 | Outpatient (CLI) | payer BC, OTHER | LOC: M PLALAB 11:15 | PROVIDERS: ATTEND Internal Medicine Cardiovascular Disease | DX: I50.42 Chronic combined systolic (congestive) and diastolic (congestive) heart failure (principal) ==

== ENCOUNTER → 2020-01-16 | Outpatient (CLI) | payer BC, OTHER ==
[2020-01-16 13:48] LABS: ALBUMIN 3.7 GM/DL (3.2-5.2); BLOOD UREA NITROGEN 16 MG/DL (7-18); CALCIUM LEVEL 9.5 MG/DL (8.8-10.2); CARBON DIOXIDE LEVEL 28 MEQ/L (21-32); CHLORIDE LEVEL 103 MEQ/L (98-107); CREATININE FOR GFR 1.26 MG/DL (0.70-1.30); GLOMERULAR FILTRATION RATE > 60.0 (>49); GLUCOSE, FASTING 95 MG/DL (70-100); MAGNESIUM LEVEL 2.1 MG/DL (1.8-2.4); SODIUM LEVEL 135 MEQ/L (136-145)
== END ==
LOC: M PLALAB 10:30
PROVIDERS: ATTEND Internal Medicine Cardiovascular Disease
DX: I50.42 Chronic combined systolic (congestive) and diastolic (congestive) heart failure (principal)

== ENCOUNTER → 2020-05-29 | Outpatient (CLI) | payer BC, OTHER ==
[2020-05-29 14:45] LABS: ALBUMIN 3.9 GM/DL (3.2-5.2); BLOOD UREA NITROGEN 17 MG/DL (7-18); CALCIUM LEVEL 9.3 MG/DL (8.8-10.2); CARBON DIOXIDE LEVEL 28 MEQ/L (21-32); CHLORIDE LEVEL 104 MEQ/L (98-107); CREATININE FOR GFR 1.14 MG/DL (0.70-1.30); GLOMERULAR FILTRATION RATE > 60.0 (>49); GLUCOSE, FASTING 92 MG/DL (70-100); NT-PRO BNP 1426 PG/ML (<125); PHOSPHORUS LEVEL 3.7 MG/DL (2.5-4.9); POTASSIUM SERUM 5.4 MEQ/L (3.5-5.1); SODIUM LEVEL 140 MEQ/L (136-145)
== END ==
LOC: M PLALAB 09:45
PROVIDERS: ATTEND Internal Medicine Cardiovascular Disease
DX: I50.42 Chronic combined systolic (congestive) and diastolic (congestive) heart failure (principal)

== ENCOUNTER → 2020-05-29 | Outpatient (REF) | payer BC, OTHER ==
[2020-05-29 14:34] LABS: ALT/SGPT 36 U/L (12-78); BILIRUBIN,TOTAL 0.6 MG/DL (0.2-1.0); BLOOD UREA NITROGEN 18 MG/DL (7-18); CALCIUM LEVEL 9.6 MG/DL (8.8-10.2); CARBON DIOXIDE LEVEL 28 MEQ/L (21-32); CHLORIDE LEVEL 103 MEQ/L (98-107); CHOLESTEROL LEVEL 200 MG/DL (<200); CREATININE FOR GFR 1.19 MG/DL (0.70-1.30); GLOMERULAR FILTRATION RATE > 60.0 (>49); GLUCOSE, FASTING 93 MG/DL (70-100); HDL CHOLESTEROL 99 MG/DL (>40); LDL CHOLESTEROL 77 MG/DL (<100); MAGNESIUM LEVEL 2.2 MG/DL (1.8-2.4); NON-HDL-C 101 MG/DL; POTASSIUM SERUM 5.6 MEQ/L (3.5-5.1); SODIUM LEVEL 139 MEQ/L (136-145); TOTAL PROTEIN 7.5 GM/DL (6.4-8.2); TRIGLYCERIDES LEVEL 122 MG/DL (<150)
[2020-05-29 15:31] LABS: BASO # 0.1 10^3/uL (0.0-0.2); BASO % 1.5 % (0.0-1.0); EOS # 0.1 10^3/uL (0.0-0.5); EOS % 2.1 % (0.0-3.0); HEMATOCRIT 40.3 % (42.0-52.0); HEMOGLOBIN 13.1 g/dl (13.5-17.5); LYMPH # 1.4 10^3/uL (1.5-5.0); LYMPH % 25.4 % (24.0-44.0); MEAN CORPUSCULAR HEMOGLOBIN 33.2 pg (27.0-33.0); MEAN CORPUSCULAR HGB CONC 32.5 g/dl (32.0-36.5); MEAN CORPUSCULAR VOLUME 102.3 fl (80.0-96.0); MONO # 0.7 10^3/uL (0.0-0.8); MONO % 13.9 % (0.0-5.0); NEUTROPHILS % 56.3 % (36.0-66.0); PLATELET COUNT, AUTOMATED 180 10^3/uL (150-450); RED BLOOD COUNT 3.94 10^6/uL (4.30-6.10); WHITE BLOOD COUNT 5.3 10^3/uL (4.0-10.0)
[2020-05-29 16:03] LABS: FOLATE 9.9 NG/ML; HEPATITIS C VIRUS ABY INDEX 0.1 INDEX (<0.8)
== END ==
LOC: M SFHCPLAZ 09:08
PROVIDERS: ATTEND Internal Medicine
DX: I25.5 Ischemic cardiomyopathy (principal); I25.10 Atherosclerotic heart disease of native coronary artery without angina pectoris; E78.5 Hyperlipidemia, unspecified

== ENCOUNTER → 2020-11-27 | Outpatient (CLI) | payer BC, OTHER ==
[~2020-11-27] MED LIST changes: -LISI2.5T2; +LISI2.5T9
[2020-11-27 14:12] LABS: ALBUMIN 3.9 GM/DL (3.2-5.2); ALT/SGPT 43 U/L (12-78); BILIRUBIN,TOTAL 0.5 MG/DL (0.2-1.0); BLOOD UREA NITROGEN 22 MG/DL (7-18); CALCIUM LEVEL 9.3 MG/DL (8.8-10.2); CARBON DIOXIDE LEVEL 28 MEQ/L (21-32); CHLORIDE LEVEL 103 MEQ/L (98-107); CHOLESTEROL LEVEL 173 MG/DL (<200); CHOLESTEROL RISK RATIO 1.965 (<5); CREATININE FOR GFR 1.15 MG/DL (0.70-1.30); GLOMERULAR FILTRATION RATE > 60.0 (>49); GLUCOSE, FASTING 80 MG/DL (70-100); HDL CHOLESTEROL 88 MG/DL (>40); LDL CHOLESTEROL 64 MG/DL (<100); MAGNESIUM LEVEL 2.4 MG/DL (1.8-2.4); NON-HDL-C 85 MG/DL; NT-PRO BNP 1024 PG/ML (<125); POTASSIUM SERUM 5.5 MEQ/L (3.5-5.1); SODIUM LEVEL 137 MEQ/L (136-145); TOTAL PROTEIN 7.3 GM/DL (6.4-8.2); TRIGLYCERIDES LEVEL 107 MG/DL (<150)
== END ==
LOC: M PLALAB 08:48
PROVIDERS: ATTEND Internal Medicine
DX: I25.5 Ischemic cardiomyopathy (principal); E78.5 Hyperlipidemia, unspecified

== ENCOUNTER → 2020-12-11 | Outpatient (CLI) | payer BC, OTHER ==
--- NOTE | 2020-12-12 15:53 | REPVR ---
PROCEDURE INFORMATION: Exam: MR Lumbar Spine Without Contrast Exam date and time: 12/11/2020 1:11 PM Age: 65 years old Clinical indication: Low back pain. TECHNIQUE: Imaging protocol: Multiplanar magnetic resonance images of the lumbar spine without intravenous contrast. COMPARISON: No relevant prior studies available. FINDINGS: Vertebrae: Unremarkable. Spinal cord: Normal signal. No cord compression. L1-L2: No significant disc disease. No significant spinal canal stenosis. No neural foraminal stenosis. L2-L3: There is disc desiccation. There is facet arthropathy and ligamentum flavum hypertrophy. L3-L4: There is disc desiccation. There is facet arthropathy and ligamentum flavum hypertrophy. L4-L5: There is disc desiccation. There is facet arthropathy and ligamentum flavum hypertrophy. L5-S1: No significant disc disease. No significant spinal canal stenosis. No neural foraminal stenosis. Sacrum/coccyx: There is a 1.6 cm sacral cyst. Soft tissues: Unremarkable. IMPRESSION: Mild degenerative changes from L2/3-L4/5. There is no significant spinal canal stenosis. Show a white wide Please see details above. Electronically signed by: Adolfo Sebastian On 12/12/2020 15:53:21 PM
--- NOTE | 2020-12-12 17:06 | REPVR ---
PROCEDURE INFORMATION: Exam: CT Maxillofacial Without Contrast Exam date and time: 12/11/2020 1:53 PM Age: 65 years old Clinical indication: Jaw pain; Additional info: Sensory neuropathy / facial pain TECHNIQUE: Imaging protocol: Computed tomography images of the face without contrast. Radiation optimization: All CT scans at this facility use at least one of these dose optimization techniques: automated exposure control; mA and/or kV adjustment per patient size (includes targeted exams where dose is matched to clinical indication); or iterative reconstruction. COMPARISON: No relevant prior studies available. FINDINGS: Orbital cavity: Bilateral cataract surgery. Bones/joints: No acute fracture. Paranasal sinuses: Mucosal thickening of the right maxillary sinus. Soft tissues: Unremarkable. Dental: Extensive periodontal disease in the upper incisor see. IMPRESSION: No acute abnormality. Electronically signed by: Arnie Mccloud On 12/12/2020 17:05:57 PM
== END ==
LOC: M PLAIMG 12:28
PROVIDERS: ATTEND Internal Medicine
DX: G62.9 Polyneuropathy, unspecified (principal); R51.9 Headache, unspecified

== ENCOUNTER → 2021-06-18 | Outpatient (CLI) | payer OTHER ==
[2021-06-18 12:21] LABS: ALBUMIN 3.8 GM/DL (3.2-5.2); CALCIUM LEVEL 9.3 MG/DL (8.8-10.2); CREATININE FOR GFR 1.33 MG/DL (0.70-1.30); GLOMERULAR FILTRATION RATE 56.9 (>49); PHOSPHORUS LEVEL 3.9 MG/DL (2.5-4.9); POTASSIUM SERUM 5.5 MEQ/L (3.5-5.1)
== END ==
LOC: M PLALAB 09:49
PROVIDERS: ATTEND Internal Medicine Cardiovascular Disease
DX: I50.42 Chronic combined systolic (congestive) and diastolic (congestive) heart failure (principal)

== ENCOUNTER → 2021-06-18 | Outpatient (CLI) | payer OTHER ==
[2021-06-18 11:20] LABS: BASO # 0.1 10^3/uL (0.0-0.2); BASO % 1.2 % (0.0-1.0); EOS # 0.1 10^3/uL (0.0-0.5); EOS % 2.4 % (0.0-3.0); HEMATOCRIT 39.6 % (42.0-52.0); HEMOGLOBIN 13.3 g/dl (13.5-17.5); LYMPH # 1.7 10^3/uL (1.5-5.0); LYMPH % 30.3 % (24.0-44.0); MEAN CORPUSCULAR HEMOGLOBIN 33.7 pg (27.0-33.0); MEAN CORPUSCULAR HGB CONC 33.6 g/dl (32.0-36.5); MEAN CORPUSCULAR VOLUME 100.3 fl (80.0-96.0); MONO # 1.1 10^3/uL (0.0-0.8); MONO % 18.5 % (2.0-8.0); NEUTROPHILS # 2.7 10^3/uL (1.5-8.5); NEUTROPHILS % 47.3 % (36.0-66.0); PLATELET COUNT, AUTOMATED 160 10^3/uL (150-450); RED BLOOD COUNT 3.95 10^6/uL (4.30-6.10); WHITE BLOOD COUNT 5.7 10^3/uL (4.0-10.0)
[2021-06-18 12:58] LABS: ALBUMIN 3.8 GM/DL (3.2-5.2); BILIRUBIN,TOTAL 0.8 MG/DL (0.2-1.0); CALCIUM LEVEL 9.2 MG/DL (8.8-10.2); CREATININE FOR GFR 1.31 MG/DL (0.70-1.30); GLOMERULAR FILTRATION RATE 57.9 (>49); MAGNESIUM LEVEL 2.2 MG/DL (1.8-2.4); POTASSIUM SERUM 5.5 MEQ/L (3.5-5.1); THYROID STIMULATING HORMONE 3.5 uIU/ML (0.358-3.740); TOTAL PROTEIN 7.2 GM/DL (6.4-8.2); URIC ACID 6.9 MG/DL (3.5-7.2)
== END ==
LOC: M PLALAB 09:45
PROVIDERS: ATTEND Internal Medicine
DX: Z12.5 Encounter for screening for malignant neoplasm of prostate (principal); I50.42 Chronic combined systolic (congestive) and diastolic (congestive) heart failure; I25.10 Atherosclerotic heart disease of native coronary artery without angina pectoris; E79.0 Hyperuricemia without signs of inflammatory arthritis and tophaceous disease; E78.5 Hyperlipidemia, unspecified; K21.9 Gastro-esophageal reflux disease without esophagitis
CPT/HCPCS: 36415; 80053; 83735; 84443; 84550; 85025; G0103

== ENCOUNTER → 2021-09-18 | Outpatient (CLI) | payer OTHER, BC ==
[2021-09-18 15:36] LABS: BASO # 0.1 10^3/uL (0.0-0.2); BASO % 0.9 % (0.0-1.0); EOS # 0.1 10^3/uL (0.0-0.5); EOS % 0.8 % (0.0-3.0); HEMATOCRIT 44.8 % (42.0-52.0); LYMPH # 1.5 10^3/uL (1.5-5.0); LYMPH % 18.2 % (24.0-44.0); MEAN CORPUSCULAR HEMOGLOBIN 32.9 pg (27.0-33.0); MEAN CORPUSCULAR HGB CONC 33.5 g/dl (32.0-36.5); MEAN CORPUSCULAR VOLUME 98.2 fl (80.0-96.0); MONO # 1.2 10^3/uL (0.0-0.8); NEUTROPHILS # 5.6 10^3/uL (1.5-8.5); NEUTROPHILS % 65.7 % (36.0-66.0); PLATELET COUNT, AUTOMATED 228 10^3/uL (150-450); RED BLOOD COUNT 4.56 10^6/uL (4.30-6.10); WHITE BLOOD COUNT 8.5 10^3/uL (4.0-10.0)
[2021-09-18 15:47] LABS: ALBUMIN 3.7 GM/DL (3.2-5.2); ALT/SGPT 17 U/L (12-78); BILIRUBIN,TOTAL 0.7 MG/DL (0.2-1.0); BLOOD UREA NITROGEN 17 MG/DL (7-18); CALCIUM LEVEL 9.3 MG/DL (8.8-10.2); CARBON DIOXIDE LEVEL 30 MEQ/L (21-32); CHLORIDE LEVEL 104 MEQ/L (98-107); CREATININE FOR GFR 1.12 MG/DL (0.70-1.30); GLOMERULAR FILTRATION RATE > 60.0 (>49); GLUCOSE, FASTING 96 MG/DL (70-100); NT-PRO BNP 3447 PG/ML (<125); POTASSIUM SERUM 4.6 MEQ/L (3.5-5.1); SODIUM LEVEL 137 MEQ/L (136-145); TOTAL PROTEIN 7.3 GM/DL (6.4-8.2); URIC ACID 5.9 MG/DL (3.5-7.2)
== END ==
LOC: M PLALAB 14:02
PROVIDERS: ATTEND Internal Medicine Cardiovascular Disease
DX: I50.42 Chronic combined systolic (congestive) and diastolic (congestive) heart failure (principal)

== ENCOUNTER → 2021-09-24 | Outpatient (CLI) | payer OTHER ==
[2021-09-24 11:37] LABS: APPEARANCE, URINE HAZY (CLEAR); BACTERIA, URINE AUTO NEGATIVE (NEGATIVE); BILIRUBIN, URINE AUTO NEGATIVE (NEGATIVE); BLOOD, URINE BLOOD NEGATIVE (NEGATIVE); COLOR, URINE AMBER (YELLOW); GLUCOSE, URINE (UA) AUTO 3+ mg/dL (NEGATIVE); KETONE, URINE AUTO 1+ mg/dL (NEGATIVE); LEUKOCYTE ESTERASE, URINE AUTO NEGATIVE (NEGATIVE); MUCUS, URINE SMALL (NEGATIVE); NITRITE, URINE AUTO NEGATIVE (NEGATIVE); PROTEIN, URINE AUTO 1+ mg/dL (NEGATIVE); RBC, URINE AUTO 0 /HPF (0-3); SPECIFIC GRAVITY URINE AUTO 1.026 (1.002-1.035); SQUAMOUS EPITHELIAL CELL UR AU 0 /HPF (0-6); WBC, URINE AUTO 2 /HPF (0-3)
== END ==
LOC: M LAB 10:48
PROVIDERS: ATTEND Internal Medicine
DX: R63.4 Abnormal weight loss (principal); R30.0 Dysuria

== ENCOUNTER → 2021-09-24 | Outpatient (CLI) | payer OTHER | LOC: M PLAIMG 14:28 | PROVIDERS: ATTEND Internal Medicine | DX: R63.4 Abnormal weight loss (principal) ==

== ENCOUNTER → 2021-10-01 | Outpatient (CLI) | payer OTHER | LOC: M SLEEP HO 14:50 | PROVIDERS: ATTEND Internal Medicine Cardiovascular Disease | DX: I27.81 Cor pulmonale (chronic) (principal) ==

== ENCOUNTER → 2021-10-01 | Outpatient (CLI) | payer OTHER ==
[2021-10-01 11:23] LABS: ALBUMIN 3.4 GM/DL (3.2-5.2); BLOOD UREA NITROGEN 13 MG/DL (7-18); CALCIUM LEVEL 8.8 MG/DL (8.8-10.2); CARBON DIOXIDE LEVEL 30 MEQ/L (21-32); CHLORIDE LEVEL 105 MEQ/L (98-107); CREATININE FOR GFR 1.12 MG/DL (0.70-1.30); DIGOXIN LEVEL 1.4 NG/ML (0.5-2.0); GLOMERULAR FILTRATION RATE > 60.0 (>49); GLUCOSE, FASTING 102 MG/DL (70-100); NT-PRO BNP 1964 PG/ML (<125); PHOSPHORUS LEVEL 3.2 MG/DL (2.5-4.9); POTASSIUM SERUM 4.5 MEQ/L (3.5-5.1); SODIUM LEVEL 139 MEQ/L (136-145)
== END ==
LOC: M LAB 10:12
PROVIDERS: ATTEND Internal Medicine Cardiovascular Disease
DX: I50.42 Chronic combined systolic (congestive) and diastolic (congestive) heart failure (principal); I27.81 Cor pulmonale (chronic); I48.21 Permanent atrial fibrillation

== ENCOUNTER → 2021-10-04 | Outpatient (CLI) | payer OTHER ==
[~2021-10-04] MED LIST changes: +GASTROGRAFIN SOLUTION 30ML (Q9963) As Ordered ONE; +ISOVUE-370 76% 100ML VIAL As Ordered ONE
== END ==
LOC: M RAD 14:45
PROVIDERS: ATTEND Internal Medicine
DX: K57.32 Diverticulitis of large intestine without perforation or abscess without bleeding (principal); R63.4 Abnormal weight loss
CPT/HCPCS: 74177; Q9963; Q9967

== ENCOUNTER → 2021-10-25 | Outpatient (CLI) | payer OTHER ==
[~2021-10-25] MED LIST changes: -GASTROGRAFIN SOLUTION 30ML (Q9963) As Ordered ONE; -ISOVUE-370 76% 100ML VIAL As Ordered ONE
[2021-10-25 11:43] LABS: CREATININE FOR GFR 1.34 MG/DL (0.70-1.30)
[2021-10-25 11:44] LABS: ALBUMIN 3.4 GM/DL (3.2-5.2); GLOMERULAR FILTRATION RATE 56.4 (>49); PHOSPHORUS LEVEL 3.7 MG/DL (2.5-4.9)
[2021-10-29 08:46] LABS: DIGOXIN LEVEL 2.1 NG/ML (0.5-2.0)
== END ==
LOC: M LAB 10:38
PROVIDERS: ATTEND Internal Medicine Cardiovascular Disease
DX: I50.42 Chronic combined systolic (congestive) and diastolic (congestive) heart failure (principal)

== ENCOUNTER → 2021-10-28 | Outpatient (CLI) | payer OTHER ==
[2021-10-28 18:19] LABS: RHEUMATOID FACTOR QUANT < 10.0 IU/ML (<15.0); TOTAL PROTEIN 6.9 GM/DL (6.4-8.2)
[2021-10-29 00:51] LABS: HEMOGLOBIN A1c 5.7 %
[2021-10-29 12:33] LABS: ALBUMIN 3.67 GM/DL (3.29-5.55); ALBUMIN % 53.2 % (55.8-66.1); ALPHA-1-GLOBULIN % 6.1 % (2.9-4.9); ALPHA-1-GLOBULINS 0.42 GM/DL (0.17-0.41); ALPHA-2-GLOBULINS 0.94 GM/DL (0.42-0.99); ALPHA-2-GLOBULINS % 13.6 % (7.1-11.8); BETA-1-GLOBULINS 0.46 GM/DL (0.28-0.60); BETA-1-GLOBULINS % 6.6 % (4.7-7.2); BETA-2-GLOBULINS 0.38 GM/DL (0.19-0.55); BETA-2-GLOBULINS % 5.5 % (3.2-6.5); GAMMA GLOBULINS 1.04 GM/DL (0.65-1.58)
== END ==
LOC: M LAB 10:47
PROVIDERS: ATTEND Psychiatry & Neurology Neurology
DX: E11.9 Type 2 diabetes mellitus without complications (principal); G62.9 Polyneuropathy, unspecified

== ENCOUNTER → 2021-12-24 | Outpatient (REF) | payer OTHER | LOC: M LAB REF 08:46 | PROVIDERS: ATTEND Student in an Organized Health Care Education/Training Program | DX: R30.0 Dysuria (principal) ==

== ENCOUNTER → 2021-12-25 | Outpatient (CLI) | payer OTHER ==
[2021-12-25 17:57] LABS: BASO % 0.4 % (0.0-1.0); EOS % 0.1 % (0.0-3.0); HEMATOCRIT 41.9 % (42.0-52.0); HEMOGLOBIN 13.7 g/dl (13.5-17.5); LYMPH # 0.7 10^3/uL (1.5-5.0); LYMPH % 10.6 % (24.0-44.0); MEAN CORPUSCULAR HEMOGLOBIN 32.2 pg (27.0-33.0); MEAN CORPUSCULAR HGB CONC 32.7 g/dl (32.0-36.5); MEAN CORPUSCULAR VOLUME 98.6 fl (80.0-96.0); MONO # 0.9 10^3/uL (0.0-0.8); MONO % 13.5 % (2.0-8.0); NEUTROPHILS # 5.2 10^3/uL (1.5-8.5); NEUTROPHILS % 74.8 % (36.0-66.0); PLATELET COUNT, AUTOMATED 208 10^3/uL (150-450); RED BLOOD COUNT 4.25 10^6/uL (4.30-6.10)
[2021-12-25 19:22] LABS: ALBUMIN 3.6 GM/DL (3.2-5.2); CALCIUM LEVEL 9.5 MG/DL (8.8-10.2); CREATININE FOR GFR 1.59 MG/DL (0.70-1.30); GLOMERULAR FILTRATION RATE 46.3 (>49); PHOSPHORUS LEVEL 2.8 MG/DL (2.5-4.9); POTASSIUM SERUM 4.8 MEQ/L (3.5-5.1)
== END ==
LOC: M LAB 16:46
PROVIDERS: ATTEND Internal Medicine Cardiovascular Disease
DX: I50.43 Acute on chronic combined systolic (congestive) and diastolic (congestive) heart failure (principal); I48.21 Permanent atrial fibrillation

== ENCOUNTER 2022-01-05 20:56 | Inpatient (IN) | payer OTHER ==
[~2022-01-05] VITALS: Ht 172.7 cm; Wt 69.1 kg
[2022-01-05] MEDS ORDERED: B12-1CHW PO (21:22)
[2022-01-05] MEDS ORDERED: ALLO100T PO (21:22)
[2022-01-05] MEDS ORDERED: FARX1TAB3 PO (21:22)
[2022-01-05] MEDS ORDERED: SPIR-10 PO (21:22)
[2022-01-05] MEDS ORDERED: TORS5TAB2 PO (21:22)
[2022-01-05] MEDS ORDERED: MM S100C PO (21:22)
[2022-01-05] MEDS ORDERED: LANO62.5 PO (21:22)
[2022-01-05] MEDS ORDERED: LOSA25TA13 PO (21:22)
[2022-01-05] MEDS ORDERED: COLC0.6T47 PO (21:22)
[2022-01-05] MEDS ORDERED: ELIQ2.5T PO (21:22)
[2022-01-05 21:52] LABS: BASO # 0.1 10^3/uL (0.0-0.2); BASO % 0.7 % (0.0-1.0); EOS # 0.4 10^3/uL (0.0-0.5); HEMATOCRIT 40.9 % (42.0-52.0); HEMOGLOBIN 13.6 g/dl (13.5-17.5); LYMPH # 1.7 10^3/uL (1.5-5.0); LYMPH % 13.8 % (24.0-44.0); MEAN CORPUSCULAR HEMOGLOBIN 32.4 pg (27.0-33.0); MEAN CORPUSCULAR HGB CONC 33.3 g/dl (32.0-36.5); MEAN CORPUSCULAR VOLUME 97.4 fl (80.0-96.0); MONO % 17.7 % (2.0-8.0); NEUTROPHILS # 7.7 10^3/uL (1.5-8.5); NEUTROPHILS % 64.1 % (36.0-66.0); PLATELET COUNT, AUTOMATED 437 10^3/uL (150-450); WHITE BLOOD COUNT 12.1 10^3/uL (4.0-10.0)
[2022-01-05 22:22] LABS: MONO # 2.1 10^3/uL (0.0-0.8)
[2022-01-05] MEDS: GASTROGRAFIN SOLUTION 30ML PO SCH ×2 (22:33→23:06)
[2022-01-05 22:56] LABS: ALBUMIN 2.6 GM/DL (3.2-5.2); BILIRUBIN,DIRECT 0.2 MG/DL (0.0-0.2); BILIRUBIN,TOTAL 0.4 MG/DL (0.2-1.0); CALCIUM LEVEL 8.9 MG/DL (8.8-10.2); CREATININE FOR GFR 1.37 MG/DL (0.70-1.30); POTASSIUM SERUM 5.2 MEQ/L (3.5-5.1); TOTAL PROTEIN 6.3 GM/DL (6.4-8.2)
[2022-01-05] MEDS ORDERED: NS 1,000 ML IV SCH (23:05)
[2022-01-06] VITALS (22 sets, daily range): BP systolic 104–138; BP diastolic 64–75; O2SAT 86–99
[2022-01-06] MEDS ORDERED: cefTRIAXone SOD 1 GM in D5W MINI-BAG PLUS 50 ML IV ONE (01:00)
[2022-01-06] MEDS ORDERED: PIPERACILLIN/TAZOBACTAM SOD 4.5 GM in D5W MINI-BAG PLUS 50 ML IV ONE (01:05)
[2022-01-06] MEDS ORDERED: APIXABAN 2.5 MG TAB (ELIQUIS) PO ONE (01:15)
[2022-01-06] MEDS ORDERED: METOPROLOL TART 25 MG TABLET PO ONE (01:15)
[2022-01-06] MEDS ORDERED: CARVedilol 6.25 MG TAB PO ONE (01:15)
[2022-01-06] MEDS ORDERED: ACETAMINOPHEN TAB 650MG DOSE (2X325MG) PO PRN (01:35)
[2022-01-06] MEDS ORDERED: DIGO0.253 PO (01:42)
[2022-01-06] MEDS ORDERED: ELIQ5TAB PO (01:42)
[2022-01-06] MEDS ORDERED: LEVO1TAB39 PO (01:42)
[2022-01-06] MEDS ORDERED: MORPHINE 4 MG/ML 1ML VIAL/SYRINGE IV ONE (01:45)
[2022-01-06] MEDS ORDERED: HOME MED LIST COMPLETE! XX SCH (01:45)
[2022-01-06] MEDS ORDERED: GLUCOSE 4GM CHEW TABLET PO PRN (01:55)
[2022-01-06] MEDS ORDERED: DEXTROSE 50% 50 ML SYRINGE IV PRN (01:55)
[2022-01-06] MEDS ORDERED: GLUCAGON INJ 1MG VIAL SC PRN (01:55)
[2022-01-06] MEDS ORDERED: VANCOMYCIN HCL 750 MG, VIAL MATE ADAPTER 1 EACH in D5W 250 ML IV ONE (02:00)
[2022-01-06 02:22] LABS: RSV AMPLIFICATION NEGATIVE (NEGATIVE)
[2022-01-06 02:33] LABS: INR 1.22; PARTIAL THROMBOPLASTIN TIME 37.7 SECONDS (25.9-37.0); PROTHROMBIN TIME 15.8 SECONDS (12.7-14.5)
[2022-01-06 02:37] LABS: HEMOGLOBIN A1c 6.1 %
[2022-01-06] MEDS ORDERED: VANCOMYCIN HCL 500 MG in D5W MINI-BAG PLUS 100 ML IV ONE (03:00)
[2022-01-06] MEDS: D5W/0.9% SODIUM CHLORIDE 1,000 ML IV SCH ×2 (03:00→15:05)
[2022-01-06] MEDS ORDERED: LORazepam 2 MG TAB PO PRN (03:10)
[2022-01-06] MEDS ORDERED: ONDANSETRON 4MG 2ML VIAL IV PRN (03:20)
[2022-01-06] MEDS ORDERED: PILL CUTTER 1 EACH XX PRN (03:20)
[2022-01-06] MEDS: MORPHINE 2 MG/ML 1ML VIAL IV PRN ×2 (03:33→08:02)
[2022-01-06] MEDS: INSULIN LISPRO (NovoLOG) PER UNIT SC SCH ×3 (06:00→17:41)
[2022-01-06] MEDS: ASPIRIN 81MG ENTERIC TABLET PO SCH (08:08)
[2022-01-06] MEDS: PIPERACILLIN/TAZOBACTAM SOD 3.375 GM in D5W MINI-BAG PLUS 50 ML IV SCH ×3 (08:09→20:23)
[2022-01-06] MEDS: METOPROLOL SUCC *XL* 25MG TAB (TopROL *XL*) PO SCH ×2 (08:09→20:24)
[2022-01-06] MEDS ORDERED: FOLIC ACID 1MG TAB PO SCH (09:00)
[2022-01-06] MEDS ORDERED: MULTIVITAMINS/MINERALS THERAP 1 TAB PO SCH (09:00)
[2022-01-06] MEDS ORDERED: THIAMINE 100 MG TAB PO SCH (09:00)
[2022-01-06] MEDS: HYDROMORPHONE HCL 0.5 MG/ 0.5 ML SYRINGE (J1170 PER 1) IV PRN ×3 (10:24→19:33)
[2022-01-06 11:31] LABS: BASO # 0.1 10^3/uL (0.0-0.2); BASO % 0.8 % (0.0-1.0); EOS # 0.2 10^3/uL (0.0-0.5); EOS % 2.2 % (0.0-3.0); HEMATOCRIT 34.8 % (42.0-52.0); LYMPH % 9.2 % (24.0-44.0); MEAN CORPUSCULAR HEMOGLOBIN 31.9 pg (27.0-33.0); MEAN CORPUSCULAR VOLUME 96.7 fl (80.0-96.0); MONO % 16.6 % (2.0-8.0); NEUTROPHILS # 7.5 10^3/uL (1.5-8.5); NEUTROPHILS % 70.4 % (36.0-66.0); PLATELET COUNT, AUTOMATED 356 10^3/uL (150-450); WHITE BLOOD COUNT 10.6 10^3/uL (4.0-10.0)
[2022-01-06 12:04] LABS: MONO # 1.8 10^3/uL (0.0-0.8)
[2022-01-06 12:06] LABS: HEMOGLOBIN 11.5 g/dl (13.5-17.5)
[2022-01-06 12:12] LABS: BLOOD UREA NITROGEN 15 MG/DL (7-18); CREATININE FOR GFR 0.88 MG/DL (0.70-1.30); GLUCOSE, FASTING 112 MG/DL (70-100)
[2022-01-06 12:13] LABS: CALCIUM LEVEL 8.6 MG/DL (8.8-10.2); CARBON DIOXIDE LEVEL 27 MEQ/L (21-32); CHLORIDE LEVEL 101 MEQ/L (98-107); GLOMERULAR FILTRATION RATE > 60.0 (>49); POTASSIUM SERUM 4.9 MEQ/L (3.5-5.1); SODIUM LEVEL 133 MEQ/L (136-145)
[2022-01-06 12:17] LABS: ERYTHROCYTE SEDIMENTATION RATE 87 mm/hr (0-20)
[2022-01-06] MEDS ORDERED: HEPARIN SOD (PORCINE) 5000UNITS/ML 1ML VIAL/SYRINGE IV PRN (15:55)
[2022-01-06] MEDS ORDERED: COLCHICINE 0.6 MG TABLET PO PRN (16:10)
[2022-01-06] MEDS ORDERED: LR 1,000 ML IV SCH (16:15)
[2022-01-06] MEDS: HEPARIN DRIP 25,000 UNITS in IV 1 EA IV SCH (16:49)
[2022-01-06] MEDS ORDERED: VANCOMYCIN HCL 1,000 MG, VIAL MATE ADAPTER 1 EACH in D5W 250 ML IV SCH (17:00)
[2022-01-06] MEDS: DIGOXIN 0.25 MG TAB PO SCH (20:23)
[2022-01-06] MEDS: ROSUVASTATIN 10 MG TAB (CRESTOR) PO SCH (20:23)
[2022-01-06] MEDS: oxyCODONE 5MG TAB PO PRN (23:24)
[2022-01-07] VITALS (26 sets, daily range): BP systolic 111–135; BP diastolic 67–75; O2SAT 92–99
[2022-01-07] MEDS: PIPERACILLIN/TAZOBACTAM SOD 3.375 GM in D5W MINI-BAG PLUS 50 ML IV SCH ×4 (02:35→20:34)
[2022-01-07 04:34] LABS: BASO # 0.1 10^3/uL (0.0-0.2); BASO % 0.9 % (0.0-1.0); EOS # 0.2 10^3/uL (0.0-0.5); EOS % 1.6 % (0.0-3.0); HEMATOCRIT 34.3 % (42.0-52.0); HEMOGLOBIN 11.1 g/dl (13.5-17.5); LYMPH # 1.6 10^3/uL (1.5-5.0); LYMPH % 14.9 % (24.0-44.0); MEAN CORPUSCULAR HEMOGLOBIN 31.6 pg (27.0-33.0); MEAN CORPUSCULAR HGB CONC 32.4 g/dl (32.0-36.5); MEAN CORPUSCULAR VOLUME 97.7 fl (80.0-96.0); MONO # 1.5 10^3/uL (0.0-0.8); NEUTROPHILS # 7.4 10^3/uL (1.5-8.5); NEUTROPHILS % 67.9 % (36.0-66.0); PLATELET COUNT, AUTOMATED 381 10^3/uL (150-450); RED BLOOD COUNT 3.51 10^6/uL (4.30-6.10)
[2022-01-07 05:04] LABS: BLOOD UREA NITROGEN 13 MG/DL (7-18); CALCIUM LEVEL 8.6 MG/DL (8.8-10.2); CARBON DIOXIDE LEVEL 28 MEQ/L (21-32); CHLORIDE LEVEL 98 MEQ/L (98-107); GLOMERULAR FILTRATION RATE > 60.0 (>49); GLUCOSE, FASTING 96 MG/DL (70-100); MAGNESIUM LEVEL 2.2 MG/DL (1.8-2.4); SODIUM LEVEL 131 MEQ/L (136-145)
[2022-01-07] MEDS: HYDROMORPHONE HCL 0.5 MG/ 0.5 ML SYRINGE (J1170 PER 1) IV PRN ×4 (07:37→22:06)
[2022-01-07] MEDS: ASPIRIN 81MG ENTERIC TABLET PO SCH (07:44)
[2022-01-07] MEDS: METOPROLOL SUCC *XL* 25MG TAB (TopROL *XL*) PO SCH ×2 (07:45→20:36)
[2022-01-07] MEDS: PANTOPRAZOLE 40MG TAB (PROTONIX) PO SCH (07:45)
[2022-01-07] MEDS: HEPARIN DRIP 25,000 UNITS in IV 1 EA IV SCH ×3 (09:15→17:33)
[2022-01-07] MEDS: allopurinoL 100 MG TAB PO SCH (12:16)
[2022-01-07] MEDS ORDERED: BISACODYL 5 MG TAB PO ONE (15:00)
[2022-01-07] MEDS ORDERED: GOLYTELY SOLN 4000 ML BTL PO ONE (18:00)
[2022-01-07] MEDS: oxyCODONE 5MG TAB PO PRN (20:33)
[2022-01-07] MEDS: ROSUVASTATIN 10 MG TAB (CRESTOR) PO SCH (20:33)
[2022-01-07] MEDS: DIGOXIN 0.25 MG TAB PO SCH (20:33)
[2022-01-07] MEDS: LORATADINE 10 MG TAB PO SCH (20:33)
[2022-01-08] VITALS (14 sets, daily range): BP systolic 106–131; BP diastolic 62–74; O2SAT 92–98
[2022-01-08] MEDS: PIPERACILLIN/TAZOBACTAM SOD 3.375 GM in D5W MINI-BAG PLUS 50 ML IV SCH (02:24)
[2022-01-08] MEDS: oxyCODONE 5MG TAB PO PRN ×3 (02:39→20:46)
[2022-01-08] MEDS ORDERED: MAGNESIUM CITRATE 300 ML BTL PO ONE (05:00)
[2022-01-08] MEDS: HYDROMORPHONE HCL 0.5 MG/ 0.5 ML SYRINGE (J1170 PER 1) IV PRN ×2 (05:30→09:22)
[2022-01-08] MEDS ORDERED: metroNIDAZOLE (FLAGYL) 500MG TABLET PO SCH (06:00)
[2022-01-08 06:39] LABS: BASO # 0.2 10^3/uL (0.0-0.2); BASO % 1.5 % (0.0-1.0); EOS # 0.3 10^3/uL (0.0-0.5); EOS % 3.3 % (0.0-3.0); HEMOGLOBIN 11.3 g/dl (13.5-17.5); LYMPH % 19.2 % (24.0-44.0); MEAN CORPUSCULAR HEMOGLOBIN 32.1 pg (27.0-33.0); MEAN CORPUSCULAR HGB CONC 33.2 g/dl (32.0-36.5); MEAN CORPUSCULAR VOLUME 96.6 fl (80.0-96.0); MONO # 1.3 10^3/uL (0.0-0.8); MONO % 12.4 % (2.0-8.0); NEUTROPHILS # 6.4 10^3/uL (1.5-8.5); PLATELET COUNT, AUTOMATED 390 10^3/uL (150-450); RED BLOOD COUNT 3.52 10^6/uL (4.30-6.10); WHITE BLOOD COUNT 10.1 10^3/uL (4.0-10.0)
[2022-01-08 07:12] LABS: BLOOD UREA NITROGEN 12 MG/DL (7-18); CALCIUM LEVEL 8.5 MG/DL (8.8-10.2); CARBON DIOXIDE LEVEL 29 MEQ/L (21-32); CHLORIDE LEVEL 100 MEQ/L (98-107); CREATININE FOR GFR 0.86 MG/DL (0.70-1.30); GLOMERULAR FILTRATION RATE > 60.0 (>49); GLUCOSE, FASTING 83 MG/DL (70-100); POTASSIUM SERUM 4.5 MEQ/L (3.5-5.1); SODIUM LEVEL 133 MEQ/L (136-145)
[2022-01-08] MEDS: allopurinoL 100 MG TAB PO SCH (08:43)
[2022-01-08] MEDS: METOPROLOL SUCC *XL* 25MG TAB (TopROL *XL*) PO SCH ×2 (08:43→20:45)
[2022-01-08] MEDS: PANTOPRAZOLE 40MG TAB (PROTONIX) PO SCH (08:43)
[2022-01-08] MEDS: ASPIRIN 81MG ENTERIC TABLET PO SCH (08:43)
[2022-01-08] MEDS ORDERED: CEFDINIR 300 MG CAP (OMNICEF) PO SCH (09:00)
[2022-01-08] MEDS: AUGMENTIN 875 MG TAB PO SCH ×2 (09:22→20:45)
[2022-01-08] MEDS: LACTOBACILLUS ACIDOPHILUS CAP (BACID) PO SCH (14:31)
[2022-01-08] MEDS: PERCOCET 5MG/325MG TAB PO PRN ×2 (15:29→23:02)
[2022-01-08] MEDS: HEPARIN DRIP 25,000 UNITS in IV 1 EA IV SCH (16:33)
[2022-01-08] MEDS: DIGOXIN 0.25 MG TAB PO SCH (20:44)
[2022-01-08] MEDS: LORATADINE 10 MG TAB PO SCH (20:45)
[2022-01-08] MEDS: ROSUVASTATIN 10 MG TAB (CRESTOR) PO SCH (20:45)
[2022-01-09 04:00] VITALS: BP 104/57
[2022-01-09] MEDS: PERCOCET 5MG/325MG TAB PO PRN (05:38)
[2022-01-09 06:07] LABS: BASO # 0.2 10^3/uL (0.0-0.2); BASO % 1.6 % (0.0-1.0); EOS # 0.4 10^3/uL (0.0-0.5); EOS % 4.5 % (0.0-3.0); HEMATOCRIT 34.9 % (42.0-52.0); HEMOGLOBIN 11.3 g/dl (13.5-17.5); LYMPH # 2.1 10^3/uL (1.5-5.0); LYMPH % 22.7 % (24.0-44.0); MEAN CORPUSCULAR HEMOGLOBIN 31.3 pg (27.0-33.0); MEAN CORPUSCULAR HGB CONC 32.4 g/dl (32.0-36.5); MEAN CORPUSCULAR VOLUME 96.7 fl (80.0-96.0); MONO # 1.2 10^3/uL (0.0-0.8); MONO % 12.9 % (2.0-8.0); NEUTROPHILS # 5.3 10^3/uL (1.5-8.5); NEUTROPHILS % 57.8 % (36.0-66.0); PLATELET COUNT, AUTOMATED 424 10^3/uL (150-450); RED BLOOD COUNT 3.61 10^6/uL (4.30-6.10); WHITE BLOOD COUNT 9.3 10^3/uL (4.0-10.0)
[2022-01-09 06:39] LABS: BLOOD UREA NITROGEN 12 MG/DL (7-18); CALCIUM LEVEL 8.4 MG/DL (8.8-10.2); CARBON DIOXIDE LEVEL 28 MEQ/L (21-32); CHLORIDE LEVEL 102 MEQ/L (98-107); CREATININE FOR GFR 0.96 MG/DL (0.70-1.30); GLOMERULAR FILTRATION RATE > 60.0 (>49); GLUCOSE, FASTING 81 MG/DL (70-100); POTASSIUM SERUM 4.2 MEQ/L (3.5-5.1); SODIUM LEVEL 133 MEQ/L (136-145)
[2022-01-09 08:00] VITALS: BP 108/62
[2022-01-09 08:20] VITALS: BP 108/62
[2022-01-09] MEDS ORDERED: OXYC-517 PO (08:43)
[2022-01-09] MEDS ORDERED: AMOX875T2 PO (08:43)
[2022-01-09] MEDS ORDERED: RISATAB3 PO (08:43)
[2022-01-09 09:00] VITALS: BP 108/62
[2022-01-09] MEDS: METOPROLOL SUCC *XL* 25MG TAB (TopROL *XL*) PO SCH ×2 (09:00→09:35)
[2022-01-09] MEDS: oxyCODONE 5MG TAB PO PRN (09:17)
[2022-01-09] MEDS: allopurinoL 100 MG TAB PO SCH (09:35)
[2022-01-09] MEDS: AUGMENTIN 875 MG TAB PO SCH (09:35)
[2022-01-09] MEDS: PANTOPRAZOLE 40MG TAB (PROTONIX) PO SCH (09:36)
[2022-01-09] MEDS: ASPIRIN 81MG ENTERIC TABLET PO SCH (09:36)
[2022-01-09] MEDS: LACTOBACILLUS ACIDOPHILUS CAP (BACID) PO SCH (09:36)
== END 2022-01-09 11:07 | disposition home or self-care (01) | DRG 244 ==
LOC: M ED 20:56 → M ED INP 01-06 01:31 → M PCU 01-06 02:36
PROVIDERS: ADMIT Family Medicine; ATTEND Family Medicine
DX: K57.20 Diverticulitis of large intestine with perforation and abscess without bleeding (principal); N17.9 Acute kidney failure, unspecified; N32.1 Vesicointestinal fistula; E87.1 Hypo-osmolality and hyponatremia; I48.21 Permanent atrial fibrillation; E87.5 Hyperkalemia; N30.90 Cystitis, unspecified without hematuria; B96.20 Unspecified Escherichia coli [E. coli] as the cause of diseases classified elsewhere; I12.9 Hypertensive chronic kidney disease with stage 1 through stage 4 chronic kidney disease, or unspecified chronic kidney disease; E78.5 Hyperlipidemia, unspecified; I25.10 Atherosclerotic heart disease of native coronary artery without angina pectoris; K21.9 Gastro-esophageal reflux disease without esophagitis; Z79.01 Long term (current) use of anticoagulants; Z79.82 Long term (current) use of aspirin; Z79.899 Other long term (current) drug therapy; Z88.1 Allergy status to other antibiotic agents; Z88.8 Allergy status to other drugs, medicaments and biological substances; Z95.5 Presence of coronary angioplasty implant and graft; M10.9 Gout, unspecified; I25.2 Old myocardial infarction; Z90.49 Acquired absence of other specified parts of digestive tract; Z20.822 Contact with and (suspected) exposure to COVID-19; Z87.891 Personal history of nicotine dependence; N18.9 Chronic kidney disease, unspecified; R73.03 Prediabetes; D72.829 Elevated white blood cell count, unspecified

== ENCOUNTER → 2022-01-23 | Outpatient (CLI) | payer OTHER ==
[~2022-01-23] MED LIST changes: +ALLO100T PO; +AMOX875T2 PO; +B12-1CHW PO; +COLC0.6T47 PO; +DIGO0.253 PO; +ELIQ2.5T PO; +ELIQ5TAB PO; +FARX1TAB3 PO; +LANO62.5 PO; +LEVO1TAB39 PO; +LOSA25TA13 PO; +MM S100C PO; +OXYC-517 PO; +RISATAB3 PO; +SPIR-10 PO; +TORS5TAB2 PO
[2022-01-23 12:23] LABS: BASO # 0.1 10^3/uL (0.0-0.2); BASO % 1.3 % (0.0-1.0); EOS # 0.2 10^3/uL (0.0-0.5); EOS % 2.3 % (0.0-3.0); HEMATOCRIT 40.4 % (42.0-52.0); HEMOGLOBIN 12.9 g/dl (13.5-17.5); LYMPH # 1.4 10^3/uL (1.5-5.0); LYMPH % 18.1 % (24.0-44.0); MEAN CORPUSCULAR HEMOGLOBIN 31.5 pg (27.0-33.0); MEAN CORPUSCULAR HGB CONC 31.9 g/dl (32.0-36.5); MEAN CORPUSCULAR VOLUME 98.5 fl (80.0-96.0); MONO # 0.9 10^3/uL (0.0-0.8); MONO % 11.3 % (2.0-8.0); NEUTROPHILS % 66.6 % (36.0-66.0); PLATELET COUNT, AUTOMATED 380 10^3/uL (150-450); WHITE BLOOD COUNT 7.5 10^3/uL (4.0-10.0)
[2022-01-23 13:09] LABS: ALBUMIN 3.2 GM/DL (3.2-5.2); BLOOD UREA NITROGEN 15 MG/DL (7-18); C REACTIVE PROTEIN QUANTITATIV 1.01 MG/DL (0.00-0.30); CALCIUM LEVEL 9.5 MG/DL (8.8-10.2); CARBON DIOXIDE LEVEL 28 MEQ/L (21-32); CHLORIDE LEVEL 101 MEQ/L (98-107); CHOLESTEROL LEVEL 122 MG/DL (<200); CHOLESTEROL RISK RATIO 2.975 (<5); CREATININE FOR GFR 1.15 MG/DL (0.70-1.30); GLOMERULAR FILTRATION RATE > 60.0 (>49); GLUCOSE, FASTING 103 MG/DL (70-100); HDL CHOLESTEROL 41 MG/DL (>40); LDL CHOLESTEROL 57 MG/DL (<100); NON-HDL-C 81 MG/DL; PHOSPHORUS LEVEL 4.1 MG/DL (2.5-4.9); POTASSIUM SERUM 4.8 MEQ/L (3.5-5.1); SODIUM LEVEL 135 MEQ/L (136-145); TRIGLYCERIDES LEVEL 118 MG/DL (<150)
== END ==
LOC: M LAB 11:47
PROVIDERS: ATTEND Family Medicine
DX: K57.20 Diverticulitis of large intestine with perforation and abscess without bleeding (principal); N32.1 Vesicointestinal fistula; E87.1 Hypo-osmolality and hyponatremia; E78.5 Hyperlipidemia, unspecified; N18.31 Chronic kidney disease, stage 3a; Z87.440 Personal history of urinary (tract) infections

== ENCOUNTER → 2022-01-23 | Outpatient (REF) | payer OTHER ==
[2022-01-23 13:40] LABS: OSMOLALITY URINE 572 MOSM/KG (50-1400)
[2022-01-23 14:20] LABS: SODIUM,RANDOM URINE 70 MEQ/L
[2022-01-23 15:28] LABS: APPEARANCE, URINE MANUAL TURBID (CLEAR); COLOR, URINE MANUAL DK YELLOW (YELLOW)
[2022-01-23 15:30] LABS: GLUCOSE, URINE (UA) MANUAL 4+(1000 MG/DL) mg/dL (NEGATIVE); PROTEIN, URINE MANUAL 3+ mg/dL (NEGATIVE)
[2022-01-23 15:31] LABS: BILIRUBIN, URINE MANUAL NEGATIVE (NEGATIVE); BLOOD URINE MANUAL POSITIVE (NEGATIVE); KETONE, URINE MANUAL NEGATIVE (NEGATIVE); LEUKOCYTE ESTERASE, URINE MAN POSITIVE (NEGATIVE); NITRITE, URINE MANUAL NEGATIVE (NEGATIVE); UROBILINOGEN, URINE MANUAL NORMAL (NORMAL)
[2022-01-23 15:57] LABS: WBC, URINE TNTC /hpf (0-3)
[2022-01-23 15:59] LABS: BACTERIA, URINE LARGE AMOUNT; HYALINE CAST, URINE NONE SEEN /lpf (0-1); SQUAMOUS EPITHELIAL CELL URINE SMALL AMOUNT /hpf (SMALL AMT)
== END ==
LOC: M SFHCPLAZ 11:18
PROVIDERS: ATTEND Family Medicine
DX: E87.1 Hypo-osmolality and hyponatremia (principal); Z87.440 Personal history of urinary (tract) infections; N32.1 Vesicointestinal fistula; E78.5 Hyperlipidemia, unspecified

== ENCOUNTER → 2022-02-06 | Outpatient (CLI) | payer OTHER ==
[2022-02-06 10:47] LABS: BASO % 0.8 % (0.0-1.0); EOS # 0.3 10^3/uL (0.0-0.5); EOS % 6.1 % (0.0-3.0); HEMATOCRIT 40.9 % (42.0-52.0); HEMOGLOBIN 13.4 g/dl (13.5-17.5); LYMPH # 1.3 10^3/uL (1.5-5.0); LYMPH % 24.9 % (24.0-44.0); MEAN CORPUSCULAR HEMOGLOBIN 31.8 pg (27.0-33.0); MEAN CORPUSCULAR HGB CONC 32.8 g/dl (32.0-36.5); MEAN CORPUSCULAR VOLUME 96.9 fl (80.0-96.0); MONO # 0.6 10^3/uL (0.0-0.8); NEUTROPHILS # 2.8 10^3/uL (1.5-8.5); NEUTROPHILS % 55.6 % (36.0-66.0); PLATELET COUNT, AUTOMATED 245 10^3/uL (150-450); RED BLOOD COUNT 4.22 10^6/uL (4.30-6.10); WHITE BLOOD COUNT 5.1 10^3/uL (4.0-10.0)
[2022-02-06 12:44] LABS: ALBUMIN 3.4 GM/DL (3.2-5.2); BILIRUBIN,TOTAL 0.4 MG/DL (0.2-1.0); CREATININE FOR GFR 1.44 MG/DL (0.70-1.30); DIGOXIN LEVEL 1.4 NG/ML (0.5-2.0); GLOMERULAR FILTRATION RATE 51.9 (>49); POTASSIUM SERUM 4.7 MEQ/L (3.5-5.1); TOTAL PROTEIN 7.1 GM/DL (6.4-8.2)
== END ==
LOC: M LAB 10:22
PROVIDERS: ATTEND Internal Medicine Cardiovascular Disease
DX: I50.42 Chronic combined systolic (congestive) and diastolic (congestive) heart failure (principal); I48.21 Permanent atrial fibrillation; I34.0 Nonrheumatic mitral (valve) insufficiency; I27.81 Cor pulmonale (chronic)

== ENCOUNTER → 2022-04-15 | Outpatient (CLI) | payer OTHER ==
[2022-04-15 14:03] LABS: BASO # 0.1 10^3/uL (0.0-0.2); BASO % 0.9 % (0.0-1.0); EOS # 0.1 10^3/uL (0.0-0.5); EOS % 1.8 % (0.0-3.0); HEMATOCRIT 40.5 % (42.0-52.0); HEMOGLOBIN 13.1 g/dl (13.5-17.5); LYMPH # 1.7 10^3/uL (1.5-5.0); LYMPH % 26.5 % (24.0-44.0); MEAN CORPUSCULAR HEMOGLOBIN 32.8 pg (27.0-33.0); MEAN CORPUSCULAR HGB CONC 32.3 g/dl (32.0-36.5); MEAN CORPUSCULAR VOLUME 101.3 fl (80.0-96.0); MONO # 0.8 10^3/uL (0.0-0.8); MONO % 12.5 % (2.0-8.0); NEUTROPHILS # 3.8 10^3/uL (1.5-8.5); PLATELET COUNT, AUTOMATED 228 10^3/uL (150-450); WHITE BLOOD COUNT 6.5 10^3/uL (4.0-10.0)
[2022-04-15 14:36] LABS: ALBUMIN 3.4 G/DL (3.2-5.2); ALKALINE PHOSPHATASE 84 U/L (46-116); ALT/SGPT 17 U/L (7.0-40); AST/SGOT 21 U/L (<34); BILIRUBIN,TOTAL 0.4 MG/DL (0.3-1.2); BLOOD UREA NITROGEN 14 MG/DL (9-23); CALCIUM LEVEL 9.2 MG/DL (8.3-10.6); CARBON DIOXIDE LEVEL 30 MMOL/L (20-31); CHLORIDE LEVEL 102 MMOL/L (98-107); CREATININE FOR GFR 0.77 MG/DL (0.70-1.30); GLOMERULAR FILTRATION RATE > 60.0 (>49); GLUCOSE, FASTING 126 MG/DL (74-106); POTASSIUM SERUM 4.7 MMOL/L (3.5-5.1); SODIUM LEVEL 139 MMOL/L (136-145); TOTAL PROTEIN 6.4 G/DL (5.7-8.2)
== END ==
LOC: M LAB 13:41
PROVIDERS: ATTEND Internal Medicine Cardiovascular Disease
DX: I50.42 Chronic combined systolic (congestive) and diastolic (congestive) heart failure (principal); I34.0 Nonrheumatic mitral (valve) insufficiency; I48.21 Permanent atrial fibrillation; K57.00 Diverticulitis of small intestine with perforation and abscess without bleeding

== ENCOUNTER → 2022-05-15 | Outpatient (CLI) | payer MEDICARE, OTHER ==
[2022-05-15 12:34] LABS: BLOOD UREA NITROGEN 16 MG/DL (9-23); CALCIUM LEVEL 9.3 MG/DL (8.3-10.6); CARBON DIOXIDE LEVEL 30 MMOL/L (20-31); CHLORIDE LEVEL 102 MMOL/L (98-107); CREATININE FOR GFR 0.86 MG/DL (0.70-1.30); GLOMERULAR FILTRATION RATE > 60.0 (>49); GLUCOSE, FASTING 91 MG/DL (74-106); PHOSPHORUS LEVEL 3.5 MG/DL (2.4-5.1); POTASSIUM SERUM 4.9 MMOL/L (3.5-5.1); SODIUM LEVEL 138 MMOL/L (136-145)
== END ==
LOC: M LAB 11:24
PROVIDERS: ATTEND Internal Medicine Cardiovascular Disease
DX: I50.42 Chronic combined systolic (congestive) and diastolic (congestive) heart failure (principal)

== ENCOUNTER → 2022-11-03 | Outpatient (CLI) | payer MEDICARE, OTHER ==
[~2022-11-03] MED LIST changes: +FLUT50SP17; -FLUTISP
[2022-11-03 14:04] LABS: HEMOGLOBIN A1c 5.8 % (4.0-6.0)
[2022-11-03 14:17] LABS: FOLATE 17.6 NG/ML (>5.4)
== END ==
LOC: M PLALAB 11:12
PROVIDERS: ATTEND Psychiatry & Neurology Neurology
DX: E51.9 Thiamine deficiency, unspecified (principal); E11.8 Type 2 diabetes mellitus with unspecified complications

== ENCOUNTER → 2022-12-15 | Outpatient (CLI) | payer MEDICARE, OTHER ==
[2022-12-15 10:39] LABS: HEMATOCRIT 48.1 % (42.0-52.0); HEMOGLOBIN 15.7 g/dl (13.5-17.5); MEAN CORPUSCULAR HEMOGLOBIN 32.6 pg (27.0-33.0); MEAN CORPUSCULAR HGB CONC 32.6 g/dl (32.0-36.5); PLATELET COUNT, AUTOMATED 177 10^3/uL (150-450); RED BLOOD COUNT 4.81 10^6/uL (4.30-6.10); WHITE BLOOD COUNT 6.9 10^3/uL (4.0-10.0)
[2022-12-15 11:03] LABS: HEMOGLOBIN A1c 5.5 % (4.0-6.0)
[2022-12-15 11:09] LABS: C REACTIVE PROTEIN QUANTITATIV < 0.40 MG/DL (<1.0); CREATININE, URINE 233.8 MG/DL
[2022-12-15 11:11] LABS: MAU/CREAT RATIO 18.8 MCG/MG (0.0-30.0)
[2022-12-15 11:15] LABS: ALBUMIN 3.9 G/DL (3.2-5.2); ALKALINE PHOSPHATASE 70 U/L (46-116); ALT/SGPT 21 U/L (7.0-40); AST/SGOT 22 U/L (<34); BILIRUBIN,TOTAL 1.3 MG/DL (0.3-1.2); BLOOD UREA NITROGEN 22 MG/DL (9-23); CALCIUM LEVEL 9.5 MG/DL (8.3-10.6); CARBON DIOXIDE LEVEL 29 MMOL/L (20-31); CHLORIDE LEVEL 102 MMOL/L (98-107); CHOLESTEROL LEVEL 142 MG/DL (<200); CHOLESTEROL RISK RATIO 2.94 (<5); CREATININE FOR GFR 1.23 MG/DL (0.70-1.30); FREE T4 1.21 NG/DL (0.89-1.76); GLOMERULAR FILTRATION RATE > 60.0 (>49); GLUCOSE, FASTING 96 MG/DL (74-106); HDL CHOLESTEROL 48.2 MG/DL (>40); LDL CHOLESTEROL 43.4 MG/DL (<100); NON-HDL-C 93.8 MG/DL; POTASSIUM SERUM 5.4 MMOL/L (3.5-5.1); SODIUM LEVEL 138 MMOL/L (136-145); THYROID STIMULATING HORMONE 5.095 uIU/ML (0.55-4.78); TOTAL 25(OH) VITAMIN D 22.6 NG/ML (20.0-100.0); TRIGLYCERIDES LEVEL 252 MG/DL (<150); VITAMIN B12 LEVEL 696 PG/ML (211-911)
== END ==
LOC: M PLALAB 08:07
PROVIDERS: ATTEND Internal Medicine Hematology
DX: I25.10 Atherosclerotic heart disease of native coronary artery without angina pectoris (principal); I48.21 Permanent atrial fibrillation; N41.1 Chronic prostatitis; Z79.899 Other long term (current) drug therapy

== ENCOUNTER → 2023-03-03 | Outpatient (CLI) | payer MEDICARE, OTHER ==
[2023-03-03 15:09] LABS: BASO # 0.1 10^3/uL (0.0-0.2); BASO % 1.5 % (0.0-1.0); EOS # 0.1 10^3/uL (0.0-0.5); HEMATOCRIT 46.9 % (42.0-52.0); HEMOGLOBIN 15.7 g/dl (13.5-17.5); LYMPH # 1.8 10^3/uL (1.5-5.0); LYMPH % 27.5 % (24.0-44.0); MEAN CORPUSCULAR HEMOGLOBIN 33.4 pg (27.0-33.0); MEAN CORPUSCULAR HGB CONC 33.5 g/dl (32.0-36.5); MEAN CORPUSCULAR VOLUME 99.8 fl (80.0-96.0); MONO # 0.8 10^3/uL (0.0-0.8); MONO % 12.7 % (2.0-8.0); NEUTROPHILS # 3.6 10^3/uL (1.5-8.5); NEUTROPHILS % 55.8 % (36.0-66.0); PLATELET COUNT, AUTOMATED 178 10^3/uL (150-450); WHITE BLOOD COUNT 6.5 10^3/uL (4.0-10.0)
[2023-03-03 15:32] LABS: ALBUMIN 3.5 G/DL (3.2-5.2); ALKALINE PHOSPHATASE 79 U/L (46-116); ALT/SGPT 27 U/L (7.0-40); AST/SGOT 26 U/L (<34); BILIRUBIN,TOTAL 0.9 MG/DL (0.3-1.2); BLOOD UREA NITROGEN 19 MG/DL (9-23); CALCIUM LEVEL 9.2 MG/DL (8.3-10.6); CARBON DIOXIDE LEVEL 29 MMOL/L (20-31); CHLORIDE LEVEL 100 MMOL/L (98-107); GLOMERULAR FILTRATION RATE > 60.0 (>49); GLUCOSE, FASTING 155 MG/DL (74-106); POTASSIUM SERUM 5.1 MMOL/L (3.5-5.1); SODIUM LEVEL 137 MMOL/L (136-145); TOTAL PROTEIN 6.6 G/DL (5.7-8.2)
== END ==
LOC: M LAB 14:40
PROVIDERS: ATTEND Internal Medicine Cardiovascular Disease
DX: I50.42 Chronic combined systolic (congestive) and diastolic (congestive) heart failure (principal); I48.21 Permanent atrial fibrillation; I34.0 Nonrheumatic mitral (valve) insufficiency; I27.81 Cor pulmonale (chronic); I25.10 Atherosclerotic heart disease of native coronary artery without angina pectoris

== ENCOUNTER → 2023-09-01 | Outpatient (CLI) | payer MEDICARE, OTHER ==
[~2023-09-01] MED LIST changes: -FLUT50SP17; +FLUTISP; +ROSU5TAB40 PO; -ROSU5TAB5 PO
[2023-09-01 12:50] LABS: BASO # 0.1 10^3/uL (0.0-0.2); BASO % 1.6 % (0.0-1.0); EOS # 0.2 10^3/uL (0.0-0.5); EOS % 4.3 % (0.0-3.0); HEMATOCRIT 43.9 % (42.0-52.0); HEMOGLOBIN 14.1 g/dl (13.5-17.5); LYMPH # 1.5 10^3/uL (1.5-5.0); LYMPH % 33.4 % (24.0-44.0); MEAN CORPUSCULAR HEMOGLOBIN 30.1 pg (27.0-33.0); MEAN CORPUSCULAR HGB CONC 32.1 g/dl (32.0-36.5); MEAN CORPUSCULAR VOLUME 93.6 fl (80.0-96.0); MONO # 0.7 10^3/uL (0.0-0.8); MONO % 14.6 % (2.0-8.0); NEUTROPHILS # 2.1 10^3/uL (1.5-8.5); NEUTROPHILS % 45.9 % (36.0-66.0); PLATELET COUNT, AUTOMATED 160 10^3/uL (150-450); RED BLOOD COUNT 4.69 10^6/uL (4.30-6.10); WHITE BLOOD COUNT 4.5 10^3/uL (4.0-10.0)
[2023-09-01 13:18] LABS: ALBUMIN 3.1 G/DL (3.2-5.2); BILIRUBIN,TOTAL 1.8 MG/DL (0.3-1.2); CREATININE FOR GFR 1.86 MG/DL (0.70-1.30); GLOMERULAR FILTRATION RATE 38.4 (>42); POTASSIUM SERUM 4.7 MMOL/L (3.5-5.1); TOTAL PROTEIN 6.1 G/DL (5.7-8.2)
[2023-09-01 13:19] LABS: THYROID STIMULATING HORMONE 9.989 uIU/ML (0.55-4.78)
== END ==
LOC: M LAB 10:49
PROVIDERS: ATTEND Internal Medicine Cardiovascular Disease
DX: I48.91 Unspecified atrial fibrillation (principal); I50.20 Unspecified systolic (congestive) heart failure

== ENCOUNTER → 2023-09-09 | Outpatient (CLI) | payer MEDICARE, OTHER ==
[2023-09-09 13:10] LABS: BASO # 0.1 10^3/uL (0.0-0.2); BASO % 1.7 % (0.0-1.0); EOS # 0.2 10^3/uL (0.0-0.5); EOS % 3.7 % (0.0-3.0); HEMATOCRIT 43.5 % (42.0-52.0); LYMPH # 1.7 10^3/uL (1.5-5.0); LYMPH % 30.7 % (24.0-44.0); MEAN CORPUSCULAR HEMOGLOBIN 30.7 pg (27.0-33.0); MEAN CORPUSCULAR HGB CONC 32.2 g/dl (32.0-36.5); MEAN CORPUSCULAR VOLUME 95.4 fl (80.0-96.0); MONO # 0.9 10^3/uL (0.0-0.8); MONO % 15.9 % (2.0-8.0); NEUTROPHILS # 2.6 10^3/uL (1.5-8.5); NEUTROPHILS % 47.6 % (36.0-66.0); PLATELET COUNT, AUTOMATED 178 10^3/uL (150-450); RED BLOOD COUNT 4.56 10^6/uL (4.30-6.10); WHITE BLOOD COUNT 5.4 10^3/uL (4.0-10.0)
[2023-09-09 15:10] LABS: TOTAL 25(OH) VITAMIN D 16.4 NG/ML (20.0-100.0)
[2023-09-09 15:14] LABS: THYROID STIMULATING HORMONE 8.313 uIU/ML (0.55-4.78)
[2023-09-09 15:16] LABS: ALBUMIN 3.5 G/DL (3.2-5.2); BILIRUBIN,TOTAL 1.9 MG/DL (0.3-1.2); CALCIUM LEVEL 9.2 MG/DL (8.3-10.6); CHOLESTEROL RISK RATIO 2.91 (<5); CREATININE FOR GFR 1.59 MG/DL (0.70-1.30); GLOMERULAR FILTRATION RATE 46.1 (>42); HDL CHOLESTEROL 38.8 MG/DL (>40); LDL CHOLESTEROL 54.2 MG/DL (<100); NON-HDL-C 74.2 MG/DL; POTASSIUM SERUM 5.3 MMOL/L (3.5-5.1); TOTAL PROTEIN 6.6 G/DL (5.7-8.2)
[2023-09-09 15:18] LABS: FREE T4 1.04 NG/DL (0.89-1.76)
[2023-09-09 15:32] LABS: CREATININE, URINE 161.8 MG/DL
[2023-09-09 15:33] LABS: MAU/CREAT RATIO 59.3 MCG/MG (0.0-30.0)
[2023-09-09 17:03] LABS: HEMOGLOBIN A1c 6.3 % (4.0-6.0)
== END ==
LOC: M PLALAB 10:25
PROVIDERS: ATTEND Internal Medicine Hematology
DX: I25.5 Ischemic cardiomyopathy (principal)

== ENCOUNTER → 2023-09-09 | Outpatient (CLI) | payer MEDICARE, OTHER | LOC: M PLAIMG 10:18 | PROVIDERS: ATTEND Internal Medicine Cardiovascular Disease | DX: I50.42 Chronic combined systolic (congestive) and diastolic (congestive) heart failure (principal); I25.2 Old myocardial infarction; I25.5 Ischemic cardiomyopathy; Z95.810 Presence of automatic (implantable) cardiac defibrillator; Z79.899 Other long term (current) drug therapy ==

== ENCOUNTER → 2023-09-21 | Outpatient (CLI) | payer MEDICARE, OTHER ==
[2023-09-21 13:04] LABS: ALBUMIN 3.4 G/DL (3.2-5.2); CALCIUM LEVEL 9.3 MG/DL (8.3-10.6); CREATININE FOR GFR 1.58 MG/DL (0.70-1.30); GLOMERULAR FILTRATION RATE 46.4 (>42); PHOSPHORUS LEVEL 4.5 MG/DL (2.4-5.1); POTASSIUM SERUM 5.1 MMOL/L (3.5-5.1)
== END ==
LOC: M LAB 11:33
PROVIDERS: ATTEND Internal Medicine Cardiovascular Disease
DX: I50.42 Chronic combined systolic (congestive) and diastolic (congestive) heart failure (principal)

== ENCOUNTER → 2023-10-20 | Outpatient (CLI) | payer MEDICARE, OTHER ==
[2023-10-20 16:06] LABS: ALBUMIN 3.5 G/DL (3.2-5.2); CREATININE FOR GFR 2.53 MG/DL (0.70-1.30); GLOMERULAR FILTRATION RATE 26.9 (>42); PHOSPHORUS LEVEL 4.4 MG/DL (2.4-5.1); POTASSIUM SERUM 4.8 MMOL/L (3.5-5.1)
== END ==
LOC: M LAB 14:46
PROVIDERS: ATTEND Internal Medicine Cardiovascular Disease
DX: I50.22 Chronic systolic (congestive) heart failure (principal)